=== PATIENT | male | born 1975 | race Caucasian/White ===

== ENCOUNTER 2019-02-06 08:58 | Emergency (ER) | payer OTHER ==
[2019-02-06 09:10] VITALS: TEMP 98.3; BMI 33.7
--- NOTE | 2019-02-06 09:41 | PDOC ---
History of Present Illness - General Chief Complaint: Urinary Problem Stated Complaint: URINATING BLOOD Time Seen by Provider: 02/06/19 09:22 History Source: Patient Exam Limitations: No Limitations - History of Present Illness Initial Comments: 43 yo M history HTN, HL, anxiety presents with hematuria since this morning. He states that he felt like there was an obstruction in his urethra when he attempted to urinate this morning, however, he was able to pass urine without difficulty. He states that it feels a bit better but he still feels as if his urethra is irritated when he urinates. He noted bright red blood in his urine this morning. No prior history of kidney stone. No recent back pain, N/V. Past History - Past Medical History Allergies/Adverse Reactions: Allergies Allergy/AdvReac Type Severity Reaction Status Date / Time No Known Allergies Allergy Verified 02/06/19 09:04 Home Medications: Ambulatory Orders Atorvastatin Calcium 40 mg PO DAILY 08/07/15 Aspirin [ASA -] 81 mg PO DAILY 02/06/19 Losartan/Hydrochlorothiazide [Losartan-Hctz 100-25 mg Tab] 1 each PO DAILY 02/06 Sulfamethoxazole/Trimethoprim [Bactrim Ds -] 1 tab PO BID #6 tablet 02/06/19 COPD: No HTN: Yes Psychiatric Problems: Yes (ANXIETY) - Family Disease History Family Disease History: Heart Disease: Father - Suicide/Smoking/Psychosocial Hx Smoking History: Never smoked Have you smoked in the past 12 months: No Hx Alcohol Use: No Substance Use Type: None Review of Systems - Review of Systems Able to Perform ROS?: Yes Comments:: GENERAL/CONSTITUTIONAL: No fever or chills. No weakness. HEAD, EYES, EARS, NOSE AND THROAT: No change in vision. No ear pain or discharge. No sore throat. CARDIOVASCULAR: No chest pain or shortness of breath. RESPIRATORY: No cough, wheezing, or hemoptysis. GASTROINTESTINAL: No nausea, vomiting, diarrhea or constipation. GENITOURINARY: No dysuria, frequency. +Hematuria MUSCULOSKELETAL: No joint or muscle swelling or pain. No neck or back pain. SKIN: No rash. NEUROLOGIC: No headache, vertigo, loss of consciousness, or change in strength/ sensation. ENDOCRINE: No increased thirst. No abnormal weight change. HEMATOLOGIC/LYMPHATIC: No anemia, easy bleeding, or history of blood clots. ALLERGIC/IMMUNOLOGIC: No hives or skin allergy. *Physical Exam - Vital Signs Last Vital Signs Temp Pulse Resp BP Pulse Ox 98.3 F 74 18 121/73 98 02/06/19 09:02 02/06/19 09:02 02/06/19 09:02 02/06/19 09:02 02/06/19 09:02 - Physical Exam Comments: GENERAL: Awake, alert, and fully oriented, in no acute distress HEAD: No signs of trauma EYES: PERRLA, EOMI, sclera anicteric, conjunctiva clear ENT: Auricles normal inspection, hearing grossly normal, nares patent, oropharynx clear without exudates. Moist mucosa NECK: Normal ROM, supple, no lymphadenopathy, JVD, or masses LUNGS: Breath sounds equal, clear to auscultation bilaterally. No wheezes, and no crackles HEART: Regular rate and rhythm, normal S1 and S2, no murmurs, rubs or gallops ABDOMEN: Soft, +suprapubic tenderness, normoactive bowel sounds. No guarding, no rebound. No masses. No CVAT EXTREMITIES: Normal range of motion, no edema. No clubbing or cyanosis. No cords, erythema, or tenderness NEUROLOGICAL: Cranial nerves II through XII grossly intact. Normal speech, normal gait. Motor and sensation intact SKIN: Warm, dry, normal turgor, no rashes or lesions noted. ED Treatment Course - LABORATORY CBC & Chemistry Diagram: 02/06/19 10:00 02/06/19 10:00 Medical Decision Making - Medical Decision Making 02/06/19 09:40 Pt presents with abrupt onset hematuria, found to have suprapubic tenderness. No CVAT. Suspicion for kidney stone is low (therefore will not order CT immediately). Will obtain UA. If there are no signs of infection, will consider CT to r/o stone. 02/06/19 11:14 Creatinine is normal (checked because urine was tea-colored). UA is grossly positive. Will treat with bactrim. No prior cultures available for comparison. 02/06/19 11:30 Discussed results with patient at bedside. First dose of bactrim given in ED. Stable for DC home, PMD f/u. *DC/Admit/Observation/Transfer Diagnosis at time of Disposition: UTI (urinary tract infection) Qualifiers: Urinary tract infection type: acute cystitis Hematuria presence: with hematuria Qualified Code(s): N30.01 - Acute cystitis with hematuria - Discharge Dispostion Disposition: HOME Condition at time of disposition: Stable Decision to Admit order: No - Prescriptions Prescriptions: Sulfamethoxazole/Trimethoprim [Bactrim Ds -] 1 tab PO BID #6 tablet - Referrals Referrals: Kenny Thompson MD [Primary Care Provider] - - Patient Instructions Printed Discharge Instructions: DI for Urinary Tract Infection (UTI) - Post Discharge Activity
[2019-02-06 10:13] LABS: EPI CELLS 0.5 /HPF (0-5/HPF); HYALINE CASTS 1 /lpf (0-8); PH,URINE 5.5 (5.0-8.0); URINE APPEARANCE TURBID; URINE BILIRUBIN NEGATIVE (NEGATIVE); URINE COLOR ORANGE; URINE GLUCOSE (UA) NEGATIVE (NEGATIVE); URINE KETONE NEGATIVE (NEGATIVE); URINE LEUK ESTERASE 3+ (NEGATIVE); URINE NITRITE NEGATIVE (NEGATIVE); URINE PROTEIN 2+ (NEGATIVE); URINE RBC 1018 /hpf (0-4); URINE UROBILINOGEN 0.2 mg/dL (0.2-1.0); URINE WBC 246 /hpf (0-5)
[2019-02-06 10:20] LABS: BASO % 0.7 % (0-2.0); EOS % 3.6 % (0-4.5); HEMATOCRIT 38.4 % (35.4-49); HEMOGLOBIN 12.8 GM/dL (11.7-16.9); LYMPH % 15.4 % (8-40); MCH 29.3 pg (25.7-33.7); MCHC 33.3 g/dl (32.0-35.9); MEAN PLT VOLUME 9.4 fl (7.5-11.1); MONO % 4.8 % (3.8-10.2); NEUT % 75.5 % (42.8-82.8); PLATELET COUNT 270 K/MM3 (134-434); RBC 4.36 M/mm3 (4.00-5.60); RDW 14.1 % (11.9-15.9); WHITE BLOOD COUNT 10.6 K/mm3 (4.0-10.0)
[2019-02-06 10:48] LABS: ALBUMIN 4.1 g/dl (3.4-5.0); BILIRUBIN,TOTAL 0.4 mg/dL (0.2-1); BLOOD UREA NITROGEN 17.1 mg/dL (7-18); CALCIUM 9.9 mg/dL (8.5-10.1); CREATININE 0.9 mg/dL (0.55-1.3); POTASSIUM 4.6 mmol/L (3.5-5.1); TOT PROT 7.4 g/dl (6.4-8.2)
[2019-02-06] MEDS ORDERED: SULFAMETHOXAZOLE/TRIMETHOPRIM 800MG/160MG D.S. TABLET PO ONE (11:12)
[2019-02-06 11:21] VITALS: BP 123/78; PULSE 62
[2019-02-06] MEDS ORDERED: SULFAMETHOXAZOLE/TRIMETHOPRIM 800MG/160MG D.S. TABLET ONE (11:26)
== END 2019-02-06 11:40 | disposition home or self-care (01) ==
LOC: JER 08:58
DX: N30.01 Acute cystitis with hematuria (principal); I10 Essential (primary) hypertension; E78.5 Hyperlipidemia, unspecified; F41.9 Anxiety disorder, unspecified
CPT/HCPCS: 36415; 80053; 81003; 85025; 87086; 87186; 99282-25

== ENCOUNTER 2021-07-26 16:02 | Observation (INO) | payer OTHER ==
[2021-07-26 17:25] LABS: BASO % 0.6 % (0-2.0); EOS % 3.1 % (0-4.5); HEMATOCRIT 37.3 % (35.4-49); HEMOGLOBIN 12.5 GM/dL (11.7-16.9); LYMPH % 22.4 % (8-40); MCH 28.2 pg (25.7-33.7); MCHC 33.4 g/dl (32.0-35.9); MEAN CELL VOLUME 84.4 fl (80-96); MEAN PLT VOLUME 8.3 fl (7.5-11.1); MONO % 6.6 % (3.8-10.2); NEUT % 67.3 % (42.8-82.8); PLATELET COUNT 367 10^3/uL (134-434); RBC 4.42 M/mm3 (4.00-5.60); RDW 14.3 % (11.9-15.9); WHITE BLOOD COUNT 7.4 K/mm3 (4.0-10.0)
[2021-07-26 17:34] LABS: INR 1.16 (0.83-1.09); PROTHROMBIN TIME (PATIENT) 13.4 SEC (9.7-13.0)
[2021-07-26 17:37] LABS: ACTIVATED PTT 31.7 SECONDS (25.2-36.5)
[2021-07-26 17:41] LABS: URINE APPEARANCE CLEAR; URINE BILIRUBIN NEGATIVE (NEGATIVE); URINE COLOR DK YELLOW; URINE GLUCOSE (UA) NEGATIVE (NEGATIVE); URINE KETONE 1+ (NEGATIVE); URINE LEUK ESTERASE NEGATIVE (NEGATIVE); URINE NITRITE NEGATIVE (NEGATIVE); URINE PROTEIN TRACE (NEGATIVE); URINE UROBILINOGEN 0.2 mg/dL (0.2-1.0)
[2021-07-26 17:49] LABS: ALBUMIN 3.8 g/dl (3.4-5.0); CALCIUM 9.9 mg/dL (8.5-10.1)
[2021-07-26 17:50] LABS: BLOOD UREA NITROGEN 10.5 mg/dL (7-18)
[2021-07-26 17:54] LABS: BILIRUBIN,TOTAL 0.7 mg/dL (0.2-1); TOT PROT 8.2 g/dl (6.4-8.2)
[2021-07-26 21:43] LABS: BASO % 0.7 % (0-2.0); EOS % 3.8 % (0-4.5); HEMATOCRIT 35.6 % (35.4-49); LYMPH % 26.5 % (8-40); MCH 28.3 pg (25.7-33.7); MCHC 33.5 g/dl (32.0-35.9); MEAN CELL VOLUME 84.5 fl (80-96); MEAN PLT VOLUME 8.7 fl (7.5-11.1); MONO % 7.4 % (3.8-10.2); NEUT % 61.6 % (42.8-82.8); PLATELET COUNT 344 10^3/uL (134-434); RBC 4.22 M/mm3 (4.00-5.60); RDW 14.2 % (11.9-15.9); WHITE BLOOD COUNT 7.9 K/mm3 (4.0-10.0)
[2021-07-26] MEDS ORDERED: SODIUM CHLORIDE 1,000 ML IV SCH (22:15)
[2021-07-27] MEDS ORDERED: PANTOPRAZOLE SODIUM 40 MG/100 ML BAG IVPB ONE (01:52)
[2021-07-27] MEDS: PANTOPRAZOLE SODIUM 40 MG VIAL IVPUSH SCH ×2 (02:00→09:41)
[2021-07-27 03:24] VITALS: BMI 31.9
[2021-07-27 07:54] LABS: CALCIUM 8.9 mg/dL (8.5-10.1)
[2021-07-27 07:55] LABS: ALBUMIN 3.4 g/dl (3.4-5.0); BLOOD UREA NITROGEN 12.4 mg/dL (7-18)
[2021-07-27 07:57] LABS: HEMATOCRIT 35.3 % (35.4-49); HEMOGLOBIN 11.9 GM/dL (11.7-16.9); MCH 28.3 pg (25.7-33.7); MCHC 33.8 g/dl (32.0-35.9); MEAN CELL VOLUME 83.7 fl (80-96); MEAN PLT VOLUME 8.3 fl (7.5-11.1); PLATELET COUNT 343 10^3/uL (134-434); RBC 4.22 M/mm3 (4.00-5.60); RDW 13.8 % (11.9-15.9); WHITE BLOOD COUNT 6.7 K/mm3 (4.0-10.0)
[2021-07-27 07:58] LABS: CREATININE 0.9 mg/dL (0.55-1.3)
[2021-07-27 08:00] LABS: BILIRUBIN,TOTAL 0.8 mg/dL (0.2-1); TOT PROT 7.1 g/dl (6.4-8.2)
[2021-07-27] MEDS ORDERED: LOSARTAN 50MG/HCTZ 12.5MG 1 TAB PO SCH (10:00)
[2021-07-27 13:22] VITALS: BP 129/78; PULSE 78; TEMP 98.7
[2021-07-27] MEDS ORDERED: ATORVASTATIN CA 40 MG TABLET (FP) PO SCH (22:00)
== END 2021-07-27 15:08 | disposition left against medical advice (07) ==
LOC: JER 16:02 → JERBED 21:13 → J8W 07-27 02:58
PROVIDERS: ADMIT Internal Medicine; ATTEND Internal Medicine
PROC: 3E033GC Introduction of Other Therapeutic Substance into Peripheral Vein, Percutaneous Approach (ICD-10-PCS; principal; 2021-07-26)
PROC: 3E0337Z Introduction of Electrolytic and Water Balance Substance into Peripheral Vein, Percutaneous Approach (ICD-10-PCS; 2021-07-26)
DX: K92.1 Melena (principal); K76.9 Liver disease, unspecified; N40.0 Benign prostatic hyperplasia without lower urinary tract symptoms; I10 Essential (primary) hypertension; E78.5 Hyperlipidemia, unspecified; L29.9 Pruritus, unspecified; N20.0 Calculus of kidney; K59.00 Constipation, unspecified; R19.7 Diarrhea, unspecified; R82.4 Acetonuria; E66.9 Obesity, unspecified; Z68.32 Body mass index [BMI] 32.0-32.9, adult
CPT/HCPCS: 36415; 74177-TC; 80053; 81003; 82272; 83036; 85025; 85027; 85610; 85730; 86803; 86850; 86900; 86901; 87086; 93005; 93010; 96374; 99285-25; C9803; G0378; Q9967; U0003; U0005

== ENCOUNTER 2021-08-06 05:29 | Day surgery (SDC) | payer OTHER ==
[2021-07-30 15:06] VITALS: BMI 39.6
[2021-08-06 09:36] VITALS: BP 103/69; PULSE 63; TEMP 98.7
[2021-08-08 16:09] LABS: ATYPICAL pANCA <1:20 titer (Neg:<1:20)
== END 2021-08-06 09:42 | disposition home or self-care (01) ==
LOC: JASU-ENDO 05:29
PROVIDERS: ATTEND Internal Medicine Gastroenterology
PROC: 0DBL8ZX Excision of Transverse Colon, Via Natural or Artificial Opening Endoscopic, Diagnostic (ICD-10-PCS; 2021-08-06)
PROC: 0DBP8ZX Excision of Rectum, Via Natural or Artificial Opening Endoscopic, Diagnostic (ICD-10-PCS; 2021-08-06)
PROC: 0DBF8ZX Excision of Right Large Intestine, Via Natural or Artificial Opening Endoscopic, Diagnostic (ICD-10-PCS; 2021-08-06)
PROC: 0DBM8ZX Excision of Descending Colon, Via Natural or Artificial Opening Endoscopic, Diagnostic (ICD-10-PCS; 2021-08-06)
PROC: 0DBH8ZX Excision of Cecum, Via Natural or Artificial Opening Endoscopic, Diagnostic (ICD-10-PCS; principal; 2021-08-06 08:00)
DX: K52.89 Other specified noninfective gastroenteritis and colitis (principal); K62.89 Other specified diseases of anus and rectum
CPT/HCPCS: 36415; 82542; 86140; 86256; 86480; 86671; 86704; 86803; 87340; 87517; 88305-TC

== ENCOUNTER 2021-12-09 08:49 | Day surgery (SDC) | payer OTHER ==
[2021-12-09] MEDS ORDERED: SODIUM CHLORIDE 250 ML IV ONE (09:00)
[2021-12-09] MEDS ORDERED: diphenhydrAMINE HCL 25 MG CAPSULE (FP) PO ONE (09:30)
[2021-12-09] MEDS ORDERED: ACETAMINOPHEN 325 MG TABLET (FP) PO ONE (09:30)
[2021-12-09] MEDS ORDERED: PALONOSETRON HCL 0.25 MG/5 ML VIAL IVPUSH ONE (09:30)
[2021-12-09] MEDS ORDERED: DEXAMETHASONE SODIUM PHOSPHATE 10 MG in SODIUM CHLORIDE 50 ML IVPB ONE (09:30)
[2021-12-09] MEDS ORDERED: FOSAPREPITANT DIMEGLUMINE 150 MG in SODIUM CHLORIDE 145 ML IVPB ONE (09:30)
[2021-12-09] MEDS ORDERED: BLEOMYCIN SULFATE 15 UNIT VIAL SQ ONE (10:00)
[2021-12-09] MEDS ORDERED: DOXOrubicin HCL 50 MG/25 ML VIAL IV ONE (10:15)
[2021-12-09] MEDS ORDERED: BLEOMYCIN SULFATE IVPB ONE (10:30)
[2021-12-09] MEDS ORDERED: SODIUM CHLORIDE IVPB ONE ×2 (10:30→10:45)
[2021-12-09] MEDS ORDERED: VINBLASTINE SULFATE IVPB ONE (10:45)
[2021-12-09 10:51] LABS: BASO % 1.2 % (0-2.0); EOS % 6.5 % (0-4.5); HEMATOCRIT 35.6 % (35.4-49); HEMOGLOBIN 11.5 GM/dL (11.7-16.9); LYMPH % 15.4 % (8-40); MCH 26.8 pg (25.7-33.7); MCHC 32.2 g/dl (32.0-35.9); MEAN CELL VOLUME 83.2 fl (80-96); MEAN PLT VOLUME 7.9 fl (7.5-11.1); MONO % 6.6 % (3.8-10.2); NEUT % 70.3 % (42.8-82.8); PLATELET COUNT 383 10^3/uL (134-434); RBC 4.28 M/mm3 (4.00-5.60); RDW 19.5 % (11.9-15.9); WHITE BLOOD COUNT 8.6 K/mm3 (4.0-10.0)
[2021-12-09] MEDS ORDERED: DEXTROSE 5% IVPB ONE (11:00)
[2021-12-09] MEDS ORDERED: LIDOCAINE 2.5%/PRILOCAINE 2.5% 30 GRAM TUBE TP ONE (11:00)
[2021-12-09] MEDS ORDERED: WATER IVPB ONE (11:00)
[2021-12-09] MEDS ORDERED: DACARBAZINE IVPB ONE (11:00)
[2021-12-09 11:37] LABS: CALCIUM 9.4 mg/dL (8.5-10.1)
[2021-12-09 11:38] LABS: ALBUMIN 3.6 g/dl (3.4-5.0); BLOOD UREA NITROGEN 13.6 mg/dL (7-18); MAGNESIUM 2.5 mg/dL (1.8-2.4)
[2021-12-09 11:40] LABS: BILIRUBIN,DIRECT 0.1 mg/dL (0.0-0.2); URIC ACID 3.1 mg/dL (2.6-7.2)
[2021-12-09 11:41] LABS: CREATININE 0.8 mg/dL (0.55-1.3)
[2021-12-09 11:42] LABS: BILIRUBIN,TOTAL 0.6 mg/dL (0.2-1); TOT PROT 7.4 g/dl (6.4-8.2)
[2021-12-09 12:07] LABS: ANISOCYTOSIS 1+; MACROCYTOSIS 0
[2021-12-09 17:37] VITALS: PULSE 81; TEMP 98.7
[2021-12-09 17:55] VITALS: BP 118/58; RESP 18
[2021-12-09] MEDS ORDERED: PORTA CATH FLUSH 10 ML IVPUSH PRN (17:55)
== END 2021-12-09 17:15 | disposition home or self-care (01) ==
LOC: JONCCHEMO 08:49
PROVIDERS: ATTEND Internal Medicine Hematology & Oncology
DX: Z51.11 Encounter for antineoplastic chemotherapy (principal); C81.90 Hodgkin lymphoma, unspecified, unspecified site
CPT/HCPCS: 36415; 80048; 80076; 83615; 83735; 84550; 85025; 96367; 96375; 96401; 96411; 96413; J1453; J2469; J9040; J9130

== ENCOUNTER 2021-12-10 06:25 | Day surgery (SDC) | payer OTHER ==
[2021-12-10] MEDS ORDERED: D5-NS + 40 MEQ KCL - 20 MEQ/500 ML INFUS.BAG IV ONE (09:00)
[2021-12-10] MEDS ORDERED: PEGFILGRASTIM-CBQV (UDENYCA) 6 MG/0.6 ML SYRINGE SQ ONE (10:00)
[2021-12-10] MEDS ORDERED: MAGNESIUM 1GM/D5W - 1 GM/100 ML IVPB IVPB ONE (10:00)
[2021-12-10 15:55] VITALS: TEMP 97.7
[2021-12-10 16:14] VITALS: BP 117/69; PULSE 79; RESP 18
[2021-12-10] MEDS ORDERED: PORTA CATH FLUSH 10 ML IVPUSH PRN (16:14)
== END 2021-12-10 16:00 | disposition home or self-care (01) ==
LOC: JONCCHEMO 06:25
PROVIDERS: ATTEND Internal Medicine Hematology & Oncology
PROC: 3E043GC Introduction of Other Therapeutic Substance into Central Vein, Percutaneous Approach (ICD-10-PCS; principal; 2021-12-10)
PROC: 3E013GC Introduction of Other Therapeutic Substance into Subcutaneous Tissue, Percutaneous Approach (ICD-10-PCS; 2021-12-10)
DX: C81.90 Hodgkin lymphoma, unspecified, unspecified site (principal); Z76.89 Persons encountering health services in other specified circumstances
CPT/HCPCS: 96365; 96372; Q5111

== ENCOUNTER 2021-12-24 06:25 | Day surgery (SDC) | payer OTHER ==
[2021-12-24] MEDS ORDERED: SODIUM CHLORIDE 250 ML IV ONE (09:30)
[2021-12-24] MEDS ORDERED: diphenhydrAMINE HCL 12.5 MG/5 ML UNIT-DOSE CUPS PO ONE (10:00)
[2021-12-24] MEDS ORDERED: PALONOSETRON HCL 0.25 MG/5 ML VIAL IVPUSH ONE (10:00)
[2021-12-24] MEDS ORDERED: ACETAMINOPHEN 325 MG TABLET (FP) PO ONE (10:00)
[2021-12-24] MEDS ORDERED: DEXAMETHASONE SODIUM PHOSPHATE 10 MG in SODIUM CHLORIDE 50 ML IVPB ONE (10:00)
[2021-12-24] MEDS ORDERED: MONTELUKAST NA 10 MG TABLET PO ONE (10:00)
[2021-12-24] MEDS ORDERED: FOSAPREPITANT DIMEGLUMINE 150 MG in SODIUM CHLORIDE 145 ML IVPB ONE (10:00)
[2021-12-24 10:01] LABS: HEMATOCRIT 36.2 % (35.4-49); HEMOGLOBIN 11.9 GM/dL (11.7-16.9); MCHC 32.8 g/dl (32.0-35.9); MEAN CELL VOLUME 82.4 fl (80-96); MEAN PLT VOLUME 8.7 fl (7.5-11.1); PLATELET COUNT 254 10^3/uL (134-434); RBC 4.39 M/mm3 (4.00-5.60); RDW 20.6 % (11.9-15.9); WHITE BLOOD COUNT 7.2 K/mm3 (4.0-10.0)
[2021-12-24 10:25] LABS: MAGNESIUM 2.2 mg/dL (1.8-2.4)
[2021-12-24 10:26] LABS: ALBUMIN 3.8 g/dl (3.4-5.0); BLOOD UREA NITROGEN 16.8 mg/dL (7-18); CALCIUM 9.7 mg/dL (8.5-10.1)
[2021-12-24 10:27] LABS: URIC ACID 3.6 mg/dL (2.6-7.2)
[2021-12-24 10:29] LABS: BILIRUBIN,DIRECT 0.1 mg/dL (0.0-0.2); CREATININE 0.8 mg/dL (0.55-1.3)
[2021-12-24 10:30] LABS: BILIRUBIN,TOTAL 0.3 mg/dL (0.2-1)
[2021-12-24] MEDS ORDERED: DOXOrubicin HCL 50 MG/25 ML VIAL IV ONE (10:30)
[2021-12-24 10:50] LABS: ANISOCYTOSIS 2+; MACROCYTOSIS 1+
[2021-12-24] MEDS ORDERED: SODIUM CHLORIDE IVPB ONE ×2 (11:00→11:15)
[2021-12-24] MEDS ORDERED: BLEOMYCIN SULFATE IVPB ONE (11:00)
[2021-12-24] MEDS ORDERED: VINBLASTINE SULFATE IVPB ONE (11:15)
[2021-12-24] MEDS ORDERED: DEXTROSE 5% IVPB ONE (11:30)
[2021-12-24] MEDS ORDERED: DACARBAZINE IVPB ONE (11:30)
[2021-12-24] MEDS ORDERED: WATER IVPB ONE (11:30)
[2021-12-24 17:13] VITALS: TEMP 98.7
[2021-12-24 17:20] VITALS: BP 121/71; PULSE 80; RESP 18
[2021-12-24] MEDS ORDERED: PORTA CATH FLUSH 10 ML IVPUSH PRN (17:20)
== END 2021-12-24 15:00 | disposition home or self-care (01) ==
LOC: JONCCHEMO 06:25
PROVIDERS: ATTEND Internal Medicine Hematology & Oncology
DX: Z51.11 Encounter for antineoplastic chemotherapy (principal); C81.90 Hodgkin lymphoma, unspecified, unspecified site
CPT/HCPCS: 36415; 80048; 80076; 83615; 83735; 84550; 85025; 96367; 96375; 96411; 96413; J1453; J2469; J9040; J9130

== ENCOUNTER 2021-12-25 07:56 | Day surgery (SDC) | payer OTHER ==
[2021-12-25] MEDS ORDERED: D5-NS + 20 MEQ KCL - 10 MEQ/500 ML INFUS.BAG IV ONE (10:00)
[2021-12-25] MEDS ORDERED: DEXAMETHASONE SODIUM PHOSPHATE 6 MG in DEXTROSE 5%-WATER - 50 ML IVPB ONE (10:00)
[2021-12-25] MEDS ORDERED: MONTELUKAST NA 10 MG TABLET PO ONE (10:00)
[2021-12-25] MEDS ORDERED: MAGNESIUM 1GM/D5W - 1 GM/100 ML IVPB IVPB ONE (10:00)
[2021-12-25 17:12] VITALS: RESP 18; TEMP 98.3
[2021-12-25 17:18] VITALS: BP 128/74; PULSE 80
[2021-12-25] MEDS ORDERED: PORTA CATH FLUSH 10 ML IVPUSH PRN (17:18)
== END 2021-12-25 11:45 | disposition home or self-care (01) ==
LOC: JONCNONCHE 07:56
PROVIDERS: ATTEND Internal Medicine Hematology & Oncology
PROC: 3E043GC Introduction of Other Therapeutic Substance into Central Vein, Percutaneous Approach (ICD-10-PCS; principal; 2021-12-25)
DX: C81.90 Hodgkin lymphoma, unspecified, unspecified site (principal); Z76.89 Persons encountering health services in other specified circumstances
CPT/HCPCS: 96365; 96375

== ENCOUNTER 2022-01-07 08:11 | Day surgery (SDC) | payer OTHER ==
[2022-01-07] MEDS ORDERED: SODIUM CHLORIDE 250 ML IV ONE (09:30)
[2022-01-07] MEDS ORDERED: ACETAMINOPHEN 325 MG TABLET (FP) PO ONE (10:00)
[2022-01-07] MEDS ORDERED: FOSAPREPITANT DIMEGLUMINE 150 MG in SODIUM CHLORIDE 145 ML IVPB ONE (10:00)
[2022-01-07] MEDS ORDERED: DEXAMETHASONE SODIUM PHOSPHATE 10 MG in SODIUM CHLORIDE 50 ML IVPB ONE (10:00)
[2022-01-07] MEDS ORDERED: PALONOSETRON HCL 0.25 MG/5 ML VIAL IVPUSH ONE (10:00)
[2022-01-07] MEDS ORDERED: diphenhydrAMINE HCL 12.5 MG/5 ML UNIT-DOSE CUPS PO ONE (10:00)
[2022-01-07 10:24] LABS: HEMATOCRIT 34.2 % (35.4-49); HEMOGLOBIN 11.6 GM/dL (11.7-16.9); MCH 28.5 pg (25.7-33.7); MCHC 33.9 g/dl (32.0-35.9); MEAN CELL VOLUME 84.1 fl (80-96); MEAN PLT VOLUME 7.6 fl (7.5-11.1); PLATELET COUNT 368 10^3/uL (134-434); RBC 4.06 M/mm3 (4.00-5.60); RDW 20.5 % (11.9-15.9); WHITE BLOOD COUNT 2.9 K/mm3 (4.0-10.0)
[2022-01-07] MEDS ORDERED: DOXOrubicin HCL 50 MG/25 ML VIAL IV ONE (10:30)
[2022-01-07 10:38] VITALS: BP 138/74; PULSE 80; RESP 18; TEMP 98.8
[2022-01-07 10:45] LABS: CALCIUM 9.5 mg/dL (8.5-10.1); MAGNESIUM 2.2 mg/dL (1.8-2.4)
[2022-01-07] MEDS ORDERED: SODIUM CHLORIDE IVPB ONE ×2 (10:45→11:00)
[2022-01-07] MEDS ORDERED: BLEOMYCIN SULFATE IVPB ONE (10:45)
[2022-01-07 10:46] LABS: ALBUMIN 3.6 g/dl (3.4-5.0); BLOOD UREA NITROGEN 12.4 mg/dL (7-18)
[2022-01-07 10:47] LABS: URIC ACID 3.2 mg/dL (2.6-7.2)
[2022-01-07 10:48] LABS: CREATININE 0.7 mg/dL (0.55-1.3)
[2022-01-07 10:49] LABS: BILIRUBIN,DIRECT 0.1 mg/dL (0.0-0.2); TOT PROT 6.7 g/dl (6.4-8.2)
[2022-01-07 10:51] LABS: BILIRUBIN,TOTAL 0.2 mg/dL (0.2-1)
[2022-01-07] MEDS ORDERED: VINBLASTINE SULFATE IVPB ONE (11:00)
[2022-01-07 11:01] LABS: ANISOCYTOSIS 0; HELMET CELLS 0; HOWELL-JOLLY BODIES 0; MACROCYTOSIS 0; OVALOCYTE 0; ROULEAU 0; SICKELED CELLS 0; TARGET CELLS 0; TEAR DROP CELLS 0; TOXIC GRANULATION 0
[2022-01-07] MEDS ORDERED: DACARBAZINE IVPB ONE (11:15)
[2022-01-07] MEDS ORDERED: WATER IVPB ONE (11:15)
[2022-01-07] MEDS ORDERED: DEXTROSE 5% IVPB ONE (11:15)
[2022-01-07 11:39] LABS: HEMATOCRIT 32.9 % (35.4-49); HEMOGLOBIN 11.1 GM/dL (11.7-16.9); MCH 28.1 pg (25.7-33.7); MCHC 33.7 g/dl (32.0-35.9); MEAN CELL VOLUME 83.5 fl (80-96); MEAN PLT VOLUME 7.3 fl (7.5-11.1); PLATELET COUNT 370 10^3/uL (134-434); RBC 3.93 M/mm3 (4.00-5.60); RDW 20.5 % (11.9-15.9); WHITE BLOOD COUNT 3.3 K/mm3 (4.0-10.0)
[2022-01-07 12:20] LABS: ANISOCYTOSIS 2+; MACROCYTOSIS 0; OVALOCYTE 1+; TEAR DROP CELLS 1+
[2022-01-07] MEDS ORDERED: TBO-FILGRASTIM 480 MCG/0.8 ML DISP.SYRIN SQ ONE (12:49)
[2022-01-07] MEDS ORDERED: PORTA CATH FLUSH 10 ML IVPUSH PRN (15:06)
== END 2022-01-07 15:45 | disposition home or self-care (01) ==
LOC: JONCCHEMO 08:11
PROVIDERS: ATTEND Internal Medicine Hematology & Oncology
PROC: 3E0437Z Introduction of Electrolytic and Water Balance Substance into Central Vein, Percutaneous Approach (ICD-10-PCS; principal; 2022-01-07)
PROC: 3E01305 Introduction of Other Antineoplastic into Subcutaneous Tissue, Percutaneous Approach (ICD-10-PCS; 2022-01-07)
DX: C81.90 Hodgkin lymphoma, unspecified, unspecified site (principal); Z76.89 Persons encountering health services in other specified circumstances
CPT/HCPCS: 36415; 80048; 80076; 83615; 83735; 84550; 85025; 96360; 96372; J1447

== ENCOUNTER 2022-01-08 07:08 | Day surgery (SDC) | payer OTHER ==
[2022-01-08] MEDS ORDERED: TBO-FILGRASTIM 480 MCG/0.8 ML DISP.SYRIN SQ ONE (12:50)
[2022-01-08 14:36] VITALS: BP 136/75; PULSE 85; RESP 16; TEMP 98.5
== END 2022-01-08 12:45 | disposition home or self-care (01) ==
LOC: JONCCHEMO 07:08
PROVIDERS: ATTEND Internal Medicine Hematology & Oncology
PROC: 3E013GC Introduction of Other Therapeutic Substance into Subcutaneous Tissue, Percutaneous Approach (ICD-10-PCS; principal; 2022-01-08)
DX: C81.90 Hodgkin lymphoma, unspecified, unspecified site (principal); Z76.89 Persons encountering health services in other specified circumstances
CPT/HCPCS: 96372; J1447

== ENCOUNTER 2022-01-13 07:22 | Day surgery (SDC) | payer OTHER ==
[2022-01-13] MEDS ORDERED: SODIUM CHLORIDE 250 ML IV ONE (09:00)
[2022-01-13] MEDS ORDERED: DIPHENHYDRAMINE HCL 25 MG/10 ML CUP PO ONE (09:30)
[2022-01-13] MEDS ORDERED: PALONOSETRON HCL 0.25 MG/5 ML VIAL IVPUSH ONE (09:30)
[2022-01-13] MEDS ORDERED: DEXAMETHASONE SODIUM PHOSPHATE 10 MG in SODIUM CHLORIDE 50 ML IVPB ONE (09:30)
[2022-01-13] MEDS ORDERED: ACETAMINOPHEN 325 MG TABLET (FP) PO ONE (09:30)
[2022-01-13] MEDS ORDERED: FOSAPREPITANT DIMEGLUMINE 150 MG in SODIUM CHLORIDE 145 ML IVPB ONE (09:30)
[2022-01-13] MEDS ORDERED: DOXOrubicin HCL 50 MG/25 ML VIAL IV ONE (10:00)
[2022-01-13] MEDS ORDERED: BLEOMYCIN SULFATE IVPB ONE (10:15)
[2022-01-13] MEDS ORDERED: SODIUM CHLORIDE IVPB ONE ×2 (10:15→10:30)
[2022-01-13] MEDS ORDERED: VINBLASTINE SULFATE IVPB ONE (10:30)
[2022-01-13] MEDS ORDERED: DEXTROSE 5% IVPB ONE (10:45)
[2022-01-13] MEDS ORDERED: WATER IVPB ONE (10:45)
[2022-01-13] MEDS ORDERED: DACARBAZINE IVPB ONE (10:45)
[2022-01-13 10:59] LABS: HEMATOCRIT 38.9 % (35.4-49); HEMOGLOBIN 12.4 GM/dL (11.7-16.9); MCH 26.8 pg (25.7-33.7); MCHC 31.9 g/dl (32.0-35.9); MEAN CELL VOLUME 84.1 fl (80-96); MEAN PLT VOLUME 8.4 fl (7.5-11.1); PLATELET COUNT 328 10^3/uL (134-434); RBC 4.63 M/mm3 (4.00-5.60); RDW 20.6 % (11.9-15.9)
[2022-01-13 11:15] LABS: ALBUMIN 3.8 g/dl (3.4-5.0); BLOOD UREA NITROGEN 12.6 mg/dL (7-18); CALCIUM 9.9 mg/dL (8.5-10.1)
[2022-01-13 11:18] LABS: BILIRUBIN,DIRECT 0.1 mg/dL (0.0-0.2); CREATININE 0.9 mg/dL (0.55-1.3); URIC ACID 4.3 mg/dL (2.6-7.2)
[2022-01-13 11:20] LABS: TOT PROT 6.8 g/dl (6.4-8.2)
[2022-01-13 11:22] LABS: BILIRUBIN,TOTAL 0.3 mg/dL (0.2-1)
[2022-01-13 11:23] VITALS: PULSE 84; TEMP 99
[2022-01-13] MEDS ORDERED: PORTA CATH FLUSH 10 ML IVPUSH PRN (11:55)
[2022-01-13 12:11] LABS: ANISOCYTOSIS 2+; MACROCYTOSIS 0; OVALOCYTE 1+
[2022-01-13 16:11] VITALS: BP 131/75; RESP 20
== END 2022-01-13 16:14 | disposition home or self-care (01) ==
LOC: JONCCHEMO 07:22
PROVIDERS: ATTEND Internal Medicine Hematology & Oncology
DX: Z51.11 Encounter for antineoplastic chemotherapy (principal); C81.90 Hodgkin lymphoma, unspecified, unspecified site
CPT/HCPCS: 36415; 80048; 80076; 83615; 83735; 84550; 85025; 96367; 96375; 96411; 96413; J1453; J2469; J9040; J9130

== ENCOUNTER 2022-01-14 06:44 | Day surgery (SDC) | payer OTHER ==
[2022-01-14] MEDS: D5-NS + 20 MEQ KCL - 20 MEQ/1,000 ML INFUS.BAG IV ONE ×2 (09:54→11:08)
[2022-01-14 10:01] VITALS: TEMP 98.8
[2022-01-14] MEDS ORDERED: MAGNESIUM 1GM/D5W - 1 GM/100 ML IVPB IVPB ONE (10:15)
[2022-01-14] MEDS: D5-1/2NS+40 MEQ KCL - 20 MEQ/500 ML INFUS.BAG IV ONE ×2 (10:17→12:48)
[2022-01-14] MEDS: D5-NS + 40 MEQ KCL - 20 MEQ/500 ML INFUS.BAG IV ONE (10:17)
[2022-01-14 14:08] VITALS: BP 137/86; PULSE 94; RESP 18
[2022-01-14] MEDS ORDERED: PORTA CATH FLUSH 10 ML IVPUSH PRN (14:08)
== END 2022-01-14 12:45 | disposition home or self-care (01) ==
LOC: JONCCHEMO 06:44
PROVIDERS: ATTEND Internal Medicine Hematology & Oncology
PROC: 3E043GC Introduction of Other Therapeutic Substance into Central Vein, Percutaneous Approach (ICD-10-PCS; principal; 2022-01-14)
PROC: 3E0437Z Introduction of Electrolytic and Water Balance Substance into Central Vein, Percutaneous Approach (ICD-10-PCS; 2022-01-14)
DX: Z76.89 Persons encountering health services in other specified circumstances (principal); C81.90 Hodgkin lymphoma, unspecified, unspecified site
CPT/HCPCS: 96361; 96365

== ENCOUNTER 2022-01-15 06:24 | Day surgery (SDC) | payer OTHER ==
[2022-01-15] MEDS ORDERED: PEGFILGRASTIM-CBQV (UDENYCA) 6 MG/0.6 ML SYRINGE SQ ONE (10:00)
[2022-01-15 16:00] VITALS: BP 125/79; PULSE 75; RESP 16; TEMP 98.6
== END 2022-01-15 10:30 | disposition home or self-care (01) ==
LOC: JONCCHEMO 06:24
PROVIDERS: ATTEND Internal Medicine Hematology & Oncology
PROC: 3E013GC Introduction of Other Therapeutic Substance into Subcutaneous Tissue, Percutaneous Approach (ICD-10-PCS; principal; 2022-01-15)
DX: Z76.89 Persons encountering health services in other specified circumstances (principal); C81.90 Hodgkin lymphoma, unspecified, unspecified site
CPT/HCPCS: 96372; Q5111

== ENCOUNTER 2022-01-28 06:42 | Day surgery (SDC) | payer OTHER ==
[2022-01-28] MEDS ORDERED: SODIUM CHLORIDE 250 ML IV ONE (09:00)
[2022-01-28] MEDS ORDERED: PALONOSETRON HCL 0.25 MG/5 ML VIAL IVPUSH ONE (09:30)
[2022-01-28] MEDS ORDERED: FOSAPREPITANT DIMEGLUMINE 150 MG in SODIUM CHLORIDE 145 ML IVPB ONE (09:30)
[2022-01-28] MEDS ORDERED: DEXAMETHASONE SODIUM PHOSPHATE 8 MG in SODIUM CHLORIDE 50 ML IVPB ONE (09:30)
[2022-01-28] MEDS ORDERED: DIPHENHYDRAMINE HCL 25 MG/10 ML CUP PO ONE (09:30)
[2022-01-28] MEDS ORDERED: ACETAMINOPHEN 325 MG TABLET (FP) PO ONE (09:30)
[2022-01-28] MEDS ORDERED: DOXOrubicin HCL 50 MG/25 ML VIAL IV ONE (10:00)
[2022-01-28] MEDS ORDERED: BLEOMYCIN SULFATE IVPB ONE (10:15)
[2022-01-28] MEDS ORDERED: SODIUM CHLORIDE IVPB ONE ×2 (10:15→10:30)
[2022-01-28] MEDS ORDERED: VINBLASTINE SULFATE IVPB ONE (10:30)
[2022-01-28] MEDS ORDERED: DACARBAZINE IVPB ONE (10:45)
[2022-01-28] MEDS ORDERED: DEXTROSE 5% IVPB ONE (10:45)
[2022-01-28] MEDS ORDERED: WATER IVPB ONE (10:45)
[2022-01-28 11:46] LABS: HEMATOCRIT 38.2 % (35.4-49); HEMOGLOBIN 12.2 GM/dL (11.7-16.9); MCH 27.2 pg (25.7-33.7); MCHC 31.9 g/dl (32.0-35.9); MEAN CELL VOLUME 85.3 fl (80-96); MEAN PLT VOLUME 8.2 fl (7.5-11.1); PLATELET COUNT 303 10^3/uL (134-434); RBC 4.48 M/mm3 (4.00-5.60); RDW 21.5 % (11.9-15.9); WHITE BLOOD COUNT 11.8 K/mm3 (4.0-10.0)
[2022-01-28 11:49] VITALS: RESP 18; TEMP 98.8
[2022-01-28 12:08] LABS: CHLORIDE 106 mmol/L (98-107); SODIUM 139 mmol/L (136-145)
[2022-01-28 12:11] LABS: CALCIUM 9.8 mg/dL (8.5-10.1)
[2022-01-28 12:12] LABS: ALBUMIN 3.7 g/dl (3.4-5.0); ANION GAP 7 MMOL/L (8-16); CO2 25 mmol/L (21-32); GLUCOSE,RANDOM 88 mg/dL (74-106); MAGNESIUM 2.4 mg/dL (1.8-2.4)
[2022-01-28 12:13] LABS: SGOT/AST 20 U/L (15-37); SGPT/ALT 28 U/L (13-61)
[2022-01-28] MEDS ORDERED: PORTA CATH FLUSH 10 ML IVPUSH PRN (12:13)
[2022-01-28 12:14] LABS: BILIRUBIN,DIRECT < 0.1 mg/dL (0.0-0.2); URIC ACID 4.5 mg/dL (2.6-7.2)
[2022-01-28 12:15] LABS: CREATININE 0.8 mg/dL (0.55-1.3)
[2022-01-28 12:16] LABS: BILIRUBIN,TOTAL 0.4 mg/dL (0.2-1); TOT PROT 6.9 g/dl (6.4-8.2)
[2022-01-28 12:18] LABS: ALK PHOS 102 U/L (45-117)
[2022-01-28 12:21] LABS: ANISOCYTOSIS 0; MACROCYTOSIS 0; OVALOCYTE 1+
[2022-01-28 14:04] LABS: LDH 344 U/L (87-246)
[2022-01-28 16:19] VITALS: BP 137/75; PULSE 88
== END 2022-01-28 16:10 | disposition home or self-care (01) ==
LOC: JONCCHEMO 06:42
PROVIDERS: ATTEND Internal Medicine Hematology & Oncology
DX: Z51.11 Encounter for antineoplastic chemotherapy (principal); C81.90 Hodgkin lymphoma, unspecified, unspecified site
CPT/HCPCS: 36415; 80048; 80076; 83615; 83735; 84550; 85025; 96367; 96375; 96411; 96413; J1453; J2469; J9040; J9130

== ENCOUNTER 2022-01-29 09:22 | Day surgery (SDC) | payer OTHER ==
[2022-01-29] MEDS ORDERED: MAGNESIUM 1GM/D5W - 1 GM/100 ML IVPB IVPB ONE (10:00)
[2022-01-29] MEDS ORDERED: D5-NS + 40 MEQ KCL - 20 MEQ/500 ML INFUS.BAG IV ONE (10:00)
[2022-01-29 16:27] VITALS: TEMP 97.1
[2022-01-29] MEDS ORDERED: PORTA CATH FLUSH 10 ML IVPUSH PRN (16:32)
[2022-01-29 16:33] VITALS: BP 136/76; PULSE 86; RESP 20
== END 2022-01-29 11:40 | disposition home or self-care (01) ==
LOC: JONCCHEMO 09:22
PROVIDERS: ATTEND Internal Medicine Hematology & Oncology
PROC: 3E043GC Introduction of Other Therapeutic Substance into Central Vein, Percutaneous Approach (ICD-10-PCS; principal; 2022-01-29)
DX: C81.90 Hodgkin lymphoma, unspecified, unspecified site (principal); Z76.89 Persons encountering health services in other specified circumstances
CPT/HCPCS: 96365; 96368

== ENCOUNTER 2022-01-30 08:40 | Day surgery (SDC) | payer OTHER ==
[2022-01-30] MEDS ORDERED: PEGFILGRASTIM-CBQV (UDENYCA) 6 MG/0.6 ML SYRINGE SQ ONE (10:00)
[2022-01-30 12:12] VITALS: BP 120/79; PULSE 81; RESP 18; TEMP 98.8
== END 2022-01-30 09:50 | disposition home or self-care (01) ==
LOC: JONCCHEMO 08:40
PROVIDERS: ATTEND Internal Medicine Hematology & Oncology
PROC: 3E013GC Introduction of Other Therapeutic Substance into Subcutaneous Tissue, Percutaneous Approach (ICD-10-PCS; principal; 2022-01-30)
DX: C81.90 Hodgkin lymphoma, unspecified, unspecified site (principal); Z76.89 Persons encountering health services in other specified circumstances
CPT/HCPCS: 96372; Q5111

== ENCOUNTER 2022-02-11 09:39 | Day surgery (SDC) | payer OTHER ==
[~2022-02-11 09:39] MED LIST: SODIUM CHLORIDE 250 ML IV ONE
[2022-02-11] MEDS ORDERED: FOSAPREPITANT DIMEGLUMINE 150 MG in SODIUM CHLORIDE 145 ML IVPB ONE (10:00)
[2022-02-11] MEDS ORDERED: PALONOSETRON HCL 0.25 MG/5 ML VIAL IVPUSH ONE (10:00)
[2022-02-11] MEDS ORDERED: DEXAMETHASONE SODIUM PHOSPHATE 8 MG in SODIUM CHLORIDE 50 ML IVPB ONE (10:00)
[2022-02-11] MEDS ORDERED: diphenhydrAMINE HCL 12.5 MG/5 ML UNIT-DOSE CUPS PO ONE (10:00)
[2022-02-11] MEDS ORDERED: ACETAMINOPHEN 325 MG TABLET (FP) PO ONE (10:00)
[2022-02-11 10:08] LABS: BASO % 0.6 % (0-2.0); EOS % 0.6 % (0-4.5); HEMATOCRIT 38.9 % (35.4-49); HEMOGLOBIN 12.5 GM/dL (11.7-16.9); LYMPH % 12.8 % (8-40); MCH 28.2 pg (25.7-33.7); MCHC 32.2 g/dl (32.0-35.9); MEAN CELL VOLUME 87.5 fl (80-96); MEAN PLT VOLUME 8.5 fl (7.5-11.1); MONO % 6.8 % (3.8-10.2); NEUT % 79.2 % (42.8-82.8); PLATELET COUNT 271 10^3/uL (134-434); RBC 4.45 M/mm3 (4.00-5.60); RDW 22.7 % (11.9-15.9); WHITE BLOOD COUNT 16.2 K/mm3 (4.0-10.0)
[2022-02-11] MEDS ORDERED: DOXOrubicin HCL 50 MG/25 ML VIAL IV ONE (10:30)
[2022-02-11 10:33] LABS: ALBUMIN 3.6 g/dl (3.4-5.0); BLOOD UREA NITROGEN 15.4 mg/dL (7-18); CALCIUM 9.5 mg/dL (8.5-10.1); MAGNESIUM 2.3 mg/dL (1.8-2.4)
[2022-02-11 10:36] LABS: BILIRUBIN,DIRECT 0.1 mg/dL (0.0-0.2); URIC ACID 4.9 mg/dL (2.6-7.2)
[2022-02-11 10:37] LABS: BILIRUBIN,TOTAL 0.3 mg/dL (0.2-1)
[2022-02-11 10:38] LABS: TOT PROT 6.5 g/dl (6.4-8.2)
[2022-02-11] MEDS ORDERED: SODIUM CHLORIDE IVPB ONE ×2 (10:45→11:00)
[2022-02-11] MEDS ORDERED: BLEOMYCIN SULFATE IVPB ONE (10:45)
[2022-02-11] MEDS ORDERED: VINBLASTINE SULFATE IVPB ONE (11:00)
[2022-02-11] MEDS ORDERED: WATER IVPB ONE (11:30)
[2022-02-11] MEDS ORDERED: DEXTROSE 5% IVPB ONE (11:30)
[2022-02-11] MEDS ORDERED: DACARBAZINE IVPB ONE (11:30)
[2022-02-11 11:56] LABS: ANISOCYTOSIS 3+; MACROCYTOSIS 0
[2022-02-11 17:16] VITALS: BP 121/71; PULSE 71; RESP 20; TEMP 98.1
[2022-02-11] MEDS ORDERED: PORTA CATH FLUSH 10 ML IVPUSH PRN (17:16)
[2022-02-14 06:06] LABS: BETA-2-MICROGLOBULIN 1.5 mg/L (0.6-2.4)
== END 2022-02-11 14:15 | disposition home or self-care (01) ==
LOC: JONCCHEMO 09:39
PROVIDERS: ATTEND Internal Medicine Hematology & Oncology
DX: Z51.11 Encounter for antineoplastic chemotherapy (principal); C81.90 Hodgkin lymphoma, unspecified, unspecified site
CPT/HCPCS: 36415; 80048; 80076; 82232; 82784; 83615; 83735; 84550; 85025; 96365; 96367; 96411; 96413; J1453; J2469; J9040; J9130

== ENCOUNTER 2022-02-12 09:24 | Day surgery (SDC) | payer OTHER ==
[2022-02-12] MEDS ORDERED: D5-NS + 20 MEQ KCL - 10 MEQ/500 ML INFUS.BAG IV ONE (09:45)
[2022-02-12] MEDS ORDERED: MAGNESIUM 1GM/D5W - 1 GM/100 ML IVPB IVPB ONE (10:00)
[2022-02-12] MEDS ORDERED: WATER IVPB ONE (10:00)
[2022-02-12] MEDS ORDERED: DEXAMETHASONE IVPB ONE (10:00)
[2022-02-12] MEDS ORDERED: DEXTROSE 5% IVPB ONE (10:00)
[2022-02-12] MEDS ORDERED: FAMOTIDINE 40 MG TABLET PO ONE (10:00)
[2022-02-12] MEDS ORDERED: LORATADINE 10 MG TABLET PO ONE (10:00)
[2022-02-12] MEDS ORDERED: D5-1/2NS+20 MEQ KCL - 10 MEQ/500 ML INFUS.BAG IV ONE (10:00)
[2022-02-12 15:38] VITALS: BP 132/78; PULSE 80; RESP 18; TEMP 98.1
[2022-02-12] MEDS ORDERED: PORTA CATH FLUSH 10 ML IVPUSH PRN (15:38)
== END 2022-02-12 12:30 | disposition home or self-care (01) ==
LOC: JONCCHEMO 09:24
PROVIDERS: ATTEND Internal Medicine Hematology & Oncology
PROC: 3E043GC Introduction of Other Therapeutic Substance into Central Vein, Percutaneous Approach (ICD-10-PCS; principal; 2022-02-12)
DX: C81.90 Hodgkin lymphoma, unspecified, unspecified site (principal); Z76.89 Persons encountering health services in other specified circumstances
CPT/HCPCS: 96365; 96367; J1100

== ENCOUNTER 2022-02-13 09:27 | Day surgery (SDC) | payer OTHER ==
[~2022-02-13 09:27] MED LIST changes: +D5-NS + 20 MEQ KCL - 10 MEQ/500 ML INFUS.BAG IV ONE; +DEXAMETHASONE IVPB ONE; +DEXTROSE 5% IVPB ONE; +FAMOTIDINE 40 MG TABLET PO ONE; +LORATADINE 10 MG TABLET PO ONE; +MAGNESIUM 1GM/D5W - 1 GM/100 ML IVPB IVPB ONE; -SODIUM CHLORIDE 250 ML IV ONE; +WATER IVPB ONE
[2022-02-13 09:58] VITALS: BP 132/82; PULSE 73; RESP 18; TEMP 98.4
[2022-02-13] MEDS ORDERED: DEXAMETHASONE 4 MG TABLET (FP) PO ONE (10:00)
[2022-02-13] MEDS ORDERED: FAMOTIDINE 40 MG TABLET PO ONE (10:00)
[2022-02-13] MEDS ORDERED: PEGFILGRASTIM-CBQV (UDENYCA) 6 MG/0.6 ML SYRINGE SQ ONE (10:00)
[2022-02-13] MEDS ORDERED: LORATADINE 10 MG TABLET PO ONE (10:00)
== END 2022-02-13 09:55 | disposition home or self-care (01) ==
LOC: JONCCHEMO 09:27
PROVIDERS: ATTEND Internal Medicine Hematology & Oncology
PROC: 3E013GC Introduction of Other Therapeutic Substance into Subcutaneous Tissue, Percutaneous Approach (ICD-10-PCS; principal; 2022-02-13)
DX: C81.90 Hodgkin lymphoma, unspecified, unspecified site (principal); Z76.89 Persons encountering health services in other specified circumstances
CPT/HCPCS: 96372; Q5111

== ENCOUNTER 2022-02-24 09:15 | Day surgery (SDC) | payer OTHER ==
[2022-02-24] MEDS ORDERED: SODIUM CHLORIDE 250 ML IV ONE (09:30)
[2022-02-24 09:32] LABS: HEMOGLOBIN 12.1 GM/dL (11.7-16.9); MCHC 32.8 g/dl (32.0-35.9); MEAN CELL VOLUME 88.6 fl (80-96); MEAN PLT VOLUME 8.2 fl (7.5-11.1); PLATELET COUNT 244 10^3/uL (134-434); RBC 4.17 M/mm3 (4.00-5.60); RDW 22.3 % (11.9-15.9); WHITE BLOOD COUNT 17.4 K/mm3 (4.0-10.0)
[2022-02-24 09:50] LABS: CALCIUM 9.1 mg/dL (8.5-10.1)
[2022-02-24 09:51] LABS: ALBUMIN 3.6 g/dl (3.4-5.0); BLOOD UREA NITROGEN 17.9 mg/dL (7-18); MAGNESIUM 2.3 mg/dL (1.8-2.4)
[2022-02-24 09:54] LABS: BILIRUBIN,DIRECT 0.1 mg/dL (0.0-0.2); CREATININE 0.8 mg/dL (0.55-1.3); URIC ACID 3.8 mg/dL (2.6-7.2)
[2022-02-24 09:56] LABS: BILIRUBIN,TOTAL 0.3 mg/dL (0.2-1); TOT PROT 6.8 g/dl (6.4-8.2)
[2022-02-24] MEDS ORDERED: DEXAMETHASONE SODIUM PHOSPHATE 8 MG in SODIUM CHLORIDE 50 ML IVPB ONE (10:00)
[2022-02-24] MEDS ORDERED: diphenhydrAMINE HCL 12.5 MG/5 ML UNIT-DOSE CUPS PO ONE (10:00)
[2022-02-24] MEDS ORDERED: PALONOSETRON HCL 0.25 MG/5 ML VIAL IVPUSH ONE (10:00)
[2022-02-24] MEDS ORDERED: ACETAMINOPHEN 325 MG TABLET (FP) PO ONE (10:00)
[2022-02-24] MEDS ORDERED: FOSAPREPITANT DIMEGLUMINE 150 MG in SODIUM CHLORIDE 145 ML IVPB ONE (10:00)
[2022-02-24] MEDS ORDERED: DOXOrubicin HCL 50 MG/25 ML VIAL IV ONE (10:30)
[2022-02-24 10:46] LABS: ANISOCYTOSIS 0; MACROCYTOSIS 0; TEAR DROP CELLS 1+
[2022-02-24] MEDS ORDERED: SODIUM CHLORIDE IVPB ONE ×2 (11:00→11:15)
[2022-02-24] MEDS ORDERED: BLEOMYCIN SULFATE IVPB ONE (11:00)
[2022-02-24] MEDS ORDERED: VINBLASTINE SULFATE IVPB ONE (11:15)
[2022-02-24] MEDS ORDERED: DEXTROSE 5% IVPB ONE (11:30)
[2022-02-24] MEDS ORDERED: DACARBAZINE IVPB ONE (11:30)
[2022-02-24] MEDS ORDERED: WATER IVPB ONE (11:30)
[2022-02-24] MEDS ORDERED: PORTA CATH FLUSH 10 ML IVPUSH PRN (17:04)
[2022-02-24 17:05] VITALS: BP 134/82; PULSE 95; RESP 18; TEMP 98.5
== END 2022-02-24 14:35 | disposition home or self-care (01) ==
LOC: JONCCHEMO 09:15
PROVIDERS: ATTEND Internal Medicine Hematology & Oncology
DX: Z51.11 Encounter for antineoplastic chemotherapy (principal); C81.90 Hodgkin lymphoma, unspecified, unspecified site
CPT/HCPCS: 36415; 80048; 80076; 83615; 83735; 84550; 85025; 96367; 96375; 96411; 96413; J1453; J2469; J9040; J9130

== ENCOUNTER 2022-02-25 09:59 | Day surgery (SDC) | payer OTHER ==
[~2022-02-25 09:59] MED LIST changes: -D5-NS + 20 MEQ KCL - 10 MEQ/500 ML INFUS.BAG IV ONE; +D5-NS + 40 MEQ KCL - 20 MEQ/500 ML INFUS.BAG IV ONE; -DEXAMETHASONE IVPB ONE; +DEXAMETHASONE SODIUM PHOSPHATE 4 MG in SODIUM CHLORIDE 50 ML IVPB ONE; -DEXTROSE 5% IVPB ONE; -FAMOTIDINE 40 MG TABLET PO ONE; -MAGNESIUM 1GM/D5W - 1 GM/100 ML IVPB IVPB ONE; -WATER IVPB ONE
[2022-02-25] MEDS ORDERED: FAMOTIDINE 40 MG TABLET PO ONE (10:00)
[2022-02-25] MEDS ORDERED: MAGNESIUM 1GM/D5W - 1 GM/100 ML IVPB IVPB ONE (10:00)
[2022-02-25 14:31] VITALS: BP 124/79; PULSE 92; RESP 20; TEMP 99
[2022-02-25] MEDS ORDERED: PORTA CATH FLUSH 10 ML IVPUSH PRN (14:31)
== END 2022-02-25 12:35 | disposition home or self-care (01) ==
LOC: JONCCHEMO 09:59
PROVIDERS: ATTEND Internal Medicine Hematology & Oncology
PROC: 3E043GC Introduction of Other Therapeutic Substance into Central Vein, Percutaneous Approach (ICD-10-PCS; principal; 2022-02-25)
DX: C81.90 Hodgkin lymphoma, unspecified, unspecified site (principal); Z76.89 Persons encountering health services in other specified circumstances
CPT/HCPCS: 96361; 96365

== ENCOUNTER 2022-02-26 09:49 | Day surgery (SDC) | payer OTHER ==
[~2022-02-26 09:49] MED LIST changes: -D5-NS + 40 MEQ KCL - 20 MEQ/500 ML INFUS.BAG IV ONE; +DEXAMETHASONE 4 MG TABLET (FP) PO ONE; -DEXAMETHASONE SODIUM PHOSPHATE 4 MG in SODIUM CHLORIDE 50 ML IVPB ONE; +FAMOTIDINE 40 MG TABLET PO ONE; +PEGFILGRASTIM-CBQV (UDENYCA) 6 MG/0.6 ML SYRINGE SQ ONE
[2022-02-26 15:46] VITALS: BP 130/68; PULSE 90; RESP 20; TEMP 98.5
== END 2022-02-26 10:30 | disposition home or self-care (01) ==
LOC: JONCCHEMO 09:49
PROVIDERS: ATTEND Internal Medicine Hematology & Oncology
PROC: 3E013GC Introduction of Other Therapeutic Substance into Subcutaneous Tissue, Percutaneous Approach (ICD-10-PCS; principal; 2022-02-26)
DX: C81.90 Hodgkin lymphoma, unspecified, unspecified site (principal); Z76.89 Persons encountering health services in other specified circumstances
CPT/HCPCS: 96372; Q5111

== ENCOUNTER 2022-03-05 14:53 | Emergency (ER) | payer OTHER ==
[2022-03-05 15:08] VITALS: BP 129/77; PULSE 113; RESP 18; BMI 34.9
[2022-03-05] MEDS ORDERED: SODIUM CHLORIDE 2,000 ML IV STA (17:21)
[2022-03-05] MEDS ORDERED: ACETAMINOPHEN 1000 MG/100 ML BAG IVPB ONE (17:24)
[2022-03-05] MEDS ORDERED: ACETAMINOPHEN INJECTION 100 ML IVPB ONE (18:12)
[2022-03-05 19:07] LABS: PH,URINE 7.5 (5.0-8.0); URINE APPEARANCE CLEAR; URINE BILIRUBIN NEGATIVE (NEGATIVE); URINE COLOR YELLOW; URINE GLUCOSE (UA) NEGATIVE (NEGATIVE); URINE KETONE NEGATIVE (NEGATIVE); URINE LEUK ESTERASE NEGATIVE (NEGATIVE); URINE NITRITE NEGATIVE (NEGATIVE); URINE PROTEIN NEGATIVE (NEGATIVE); URINE UROBILINOGEN 0.2 mg/dL (0.2-1.0)
[2022-03-05 19:08] VITALS: TEMP 100.7
[2022-03-05 19:28] LABS: VENOUS BASE EXCESS -0.7 mmol/L (-2-2); VENOUS O2 SATURATION 83.2 % (70-80); VENOUS PCO2 38.8 mmHg (38-52); VENOUS PH 7.405 (7.310-7.410)
[2022-03-05 19:35] LABS: BASO % 0.3 % (0-2.0); EOS % 0.2 % (0-4.5); HEMATOCRIT 37.8 % (35.4-49); HEMOGLOBIN 12.2 GM/dL (11.7-16.9); LYMPH % 2.9 % (8-40); MCHC 32.3 g/dl (32.0-35.9); MEAN CELL VOLUME 89.7 fl (80-96); MEAN PLT VOLUME 8.3 fl (7.5-11.1); MONO % 7.9 % (3.8-10.2); NEUT % 88.7 % (42.8-82.8); PLATELET COUNT 324 10^3/uL (134-434); RBC 4.22 M/mm3 (4.00-5.60); RDW 22.6 % (11.9-15.9); WHITE BLOOD COUNT 24.8 K/mm3 (4.0-10.0)
[2022-03-05 19:51] LABS: CALCIUM 9.7 mg/dL (8.5-10.1)
[2022-03-05 19:52] LABS: ALBUMIN 3.9 g/dl (3.4-5.0); BLOOD UREA NITROGEN 5.5 mg/dL (7-18)
[2022-03-05 19:54] LABS: PHOSPHOROUS 4.1 mg/dL (2.5-4.9)
[2022-03-05 19:55] LABS: CREATININE 0.9 mg/dL (0.55-1.3)
[2022-03-05 19:56] LABS: BILIRUBIN,TOTAL 0.5 mg/dL (0.2-1); TOT PROT 6.9 g/dl (6.4-8.2)
[2022-03-05] MEDS ORDERED: METOCLOPRAMIDE HCL INJECTION 10 MG/2 ML VIAL IVPUSH ONE (20:35)
[2022-03-05] MEDS ORDERED: METOCLOPRAMIDE HCL INJECTION 10 MG/2 ML VIAL ONE (20:37)
[2022-03-05] MEDS ORDERED: CEFTRIAXONE 2,000 MG in DEXTROSE 5%-WATER - 50 ML IVPB ONE (20:39)
[2022-03-05] MEDS ORDERED: VANCOMYCIN/WATER 2 GM/400 ML PREMIX BAG IVPB ONE (20:39)
[2022-03-05 20:40] LABS: ANISOCYTOSIS 0; MACROCYTOSIS 0
[2022-03-05] MEDS ORDERED: DEXAMETHASONE SOD PHOSPHATE 4 MG/1 ML VIAL IVPUSH ONE (20:41)
[2022-03-05 20:47] LABS: INR 1.17 (0.83-1.09); PROTHROMBIN TIME (PATIENT) 13.5 SEC (9.7-13.0)
[2022-03-05 20:49] LABS: ACTIVATED PTT 26.6 SECONDS (25.2-36.5)
== END 2022-03-05 21:49 | disposition left against medical advice (07) ==
LOC: JER 14:53
PROC: 3E033GC Introduction of Other Therapeutic Substance into Peripheral Vein, Percutaneous Approach (ICD-10-PCS; principal; 2022-03-05)
DX: R50.9 Fever, unspecified (principal)
CPT/HCPCS: 0241U-QW; 36415; 70450-TC; 71045-TC-FY; 80053; 81003; 82553; 82803; 83605; 84100; 85025; 85610; 85730; 86850; 86900; 86901; 87040; 87086; 93005; 93010; 99285-25

== ENCOUNTER 2022-03-11 09:35 | Day surgery (SDC) | payer OTHER ==
[~2022-03-11 09:35] MED LIST changes: +ACETAMINOPHEN 325 MG TABLET (FP) PO ONE; -DEXAMETHASONE 4 MG TABLET (FP) PO ONE; +DEXAMETHASONE SODIUM PHOSPHATE 8 MG in SODIUM CHLORIDE 50 ML IVPB ONE; -FAMOTIDINE 40 MG TABLET PO ONE; +FOSAPREPITANT DIMEGLUMINE 150 MG in SODIUM CHLORIDE 145 ML IVPB ONE; -LORATADINE 10 MG TABLET PO ONE; +PALONOSETRON HCL 0.25 MG/5 ML VIAL IVPUSH ONE; -PEGFILGRASTIM-CBQV (UDENYCA) 6 MG/0.6 ML SYRINGE SQ ONE; +SODIUM CHLORIDE 250 ML IV ONE; +diphenhydrAMINE HCL 12.5 MG/5 ML UNIT-DOSE CUPS PO ONE
[2022-03-11] MEDS ORDERED: DOXOrubicin HCL 50 MG/25 ML VIAL IV ONE (10:00)
[2022-03-11 10:11] LABS: HEMATOCRIT 36.5 % (35.4-49); MCH 28.9 pg (25.7-33.7); MCHC 32.7 g/dl (32.0-35.9); MEAN CELL VOLUME 88.3 fl (80-96); MEAN PLT VOLUME 8.6 fl (7.5-11.1); PLATELET COUNT 340 10^3/uL (134-434); RBC 4.14 M/mm3 (4.00-5.60); RDW 22.9 % (11.9-15.9); WHITE BLOOD COUNT 21.7 K/mm3 (4.0-10.0)
[2022-03-11] MEDS ORDERED: SODIUM CHLORIDE IVPB ONE ×2 (10:15→10:30)
[2022-03-11] MEDS ORDERED: BLEOMYCIN SULFATE IVPB ONE (10:15)
[2022-03-11] MEDS ORDERED: VINBLASTINE SULFATE IVPB ONE (10:30)
[2022-03-11 10:33] LABS: MAGNESIUM 2.4 mg/dL (1.8-2.4)
[2022-03-11 10:35] LABS: ALBUMIN 3.8 g/dl (3.4-5.0); BLOOD UREA NITROGEN 11.6 mg/dL (7-18); CALCIUM 9.8 mg/dL (8.5-10.1)
[2022-03-11 10:37] LABS: CREATININE 0.8 mg/dL (0.55-1.3); URIC ACID 3.4 mg/dL (2.6-7.2)
[2022-03-11 10:38] LABS: BILIRUBIN,DIRECT 0.1 mg/dL (0.0-0.2)
[2022-03-11 10:39] LABS: TOT PROT 6.8 g/dl (6.4-8.2)
[2022-03-11 10:40] LABS: BILIRUBIN,TOTAL 0.3 mg/dL (0.2-1)
[2022-03-11] MEDS ORDERED: DACARBAZINE IVPB ONE (10:50)
[2022-03-11] MEDS ORDERED: WATER IVPB ONE (10:50)
[2022-03-11] MEDS ORDERED: DEXTROSE 5% IVPB ONE (10:50)
[2022-03-11 11:10] LABS: ANISOCYTOSIS 1+; MACROCYTOSIS 0
[2022-03-11 16:09] VITALS: RESP 18; TEMP 98.4
[2022-03-11 16:40] VITALS: BP 107/58; PULSE 69
[2022-03-11] MEDS ORDERED: PORTA CATH FLUSH 10 ML IVPUSH PRN (16:40)
== END 2022-03-11 15:25 | disposition home or self-care (01) ==
LOC: JONCCHEMO 09:35
PROVIDERS: ATTEND Internal Medicine Hematology & Oncology
DX: Z51.11 Encounter for antineoplastic chemotherapy (principal); C81.90 Hodgkin lymphoma, unspecified, unspecified site
CPT/HCPCS: 36415; 80048; 80076; 83615; 83735; 84550; 85025; 87040; 96367; 96375; 96411; 96413; J1453; J2469; J9040; J9130

== ENCOUNTER 2022-03-12 09:24 | Day surgery (SDC) | payer OTHER ==
[2022-03-12] MEDS ORDERED: FAMOTIDINE 40 MG TABLET PO ONE (10:15)
[2022-03-12] MEDS ORDERED: DEXAMETHASONE SODIUM PHOSPHATE 4 MG in SODIUM CHLORIDE 50 ML IVPB ONE (10:15)
[2022-03-12] MEDS ORDERED: LORATADINE 10 MG TABLET PO ONE (10:15)
[2022-03-12] MEDS ORDERED: D5-NS + 40 MEQ KCL - 20 MEQ/500 ML INFUS.BAG IV ONE (10:15)
[2022-03-12] MEDS ORDERED: MAGNESIUM 1GM/D5W - 1 GM/100 ML IVPB IVPB ONE (10:30)
[2022-03-12 16:19] VITALS: RESP 18; TEMP 98.2
[2022-03-12 17:05] VITALS: BP 113/62; PULSE 70
[2022-03-12] MEDS ORDERED: PORTA CATH FLUSH 10 ML IVPUSH PRN (17:05)
== END 2022-03-12 13:30 | disposition home or self-care (01) ==
LOC: JONCCHEMO 09:24
PROVIDERS: ATTEND Internal Medicine Hematology & Oncology
PROC: 3E043GC Introduction of Other Therapeutic Substance into Central Vein, Percutaneous Approach (ICD-10-PCS; principal; 2022-03-12)
DX: C81.90 Hodgkin lymphoma, unspecified, unspecified site (principal)
CPT/HCPCS: 96365; 96366; 96367; 96375

== ENCOUNTER 2022-03-13 09:27 | Day surgery (SDC) | payer OTHER ==
[~2022-03-13 09:27] MED LIST changes: -ACETAMINOPHEN 325 MG TABLET (FP) PO ONE; +DEXAMETHASONE 4 MG TABLET (FP) PO ONE; -DEXAMETHASONE SODIUM PHOSPHATE 8 MG in SODIUM CHLORIDE 50 ML IVPB ONE; +FAMOTIDINE 20 MG TABLET PO ONE; -FOSAPREPITANT DIMEGLUMINE 150 MG in SODIUM CHLORIDE 145 ML IVPB ONE; +LORATADINE 10 MG TABLET PO ONE; -PALONOSETRON HCL 0.25 MG/5 ML VIAL IVPUSH ONE; +PEGFILGRASTIM-CBQV (UDENYCA) 6 MG/0.6 ML SYRINGE SQ ONE; -SODIUM CHLORIDE 250 ML IV ONE; -diphenhydrAMINE HCL 12.5 MG/5 ML UNIT-DOSE CUPS PO ONE
[2022-03-13 09:36] VITALS: BP 116/72; PULSE 75; RESP 16; TEMP 98.5
== END 2022-03-13 09:43 | disposition home or self-care (01) ==
LOC: JONCCHEMO 09:27
PROVIDERS: ATTEND Internal Medicine Hematology & Oncology
PROC: 3E013GC Introduction of Other Therapeutic Substance into Subcutaneous Tissue, Percutaneous Approach (ICD-10-PCS; principal; 2022-03-13)
DX: C81.90 Hodgkin lymphoma, unspecified, unspecified site (principal); Z76.89 Persons encountering health services in other specified circumstances
CPT/HCPCS: 96372; Q5111

== ENCOUNTER 2022-03-25 08:54 | Day surgery (SDC) | payer OTHER ==
[~2022-03-25 08:54] MED LIST changes: -DEXAMETHASONE 4 MG TABLET (FP) PO ONE; -FAMOTIDINE 20 MG TABLET PO ONE; -LORATADINE 10 MG TABLET PO ONE; -PEGFILGRASTIM-CBQV (UDENYCA) 6 MG/0.6 ML SYRINGE SQ ONE; +SODIUM CHLORIDE 250 ML IV ONE
[2022-03-25] MEDS ORDERED: SODIUM CHLORIDE 250 ML IV ONE (09:00)
[2022-03-25] MEDS ORDERED: PALONOSETRON HCL 0.25 MG/5 ML VIAL IVPUSH ONE (09:30)
[2022-03-25] MEDS ORDERED: DEXAMETHASONE SODIUM PHOSPHATE 8 MG in SODIUM CHLORIDE 50 ML IVPB ONE (09:30)
[2022-03-25] MEDS ORDERED: FOSAPREPITANT DIMEGLUMINE 150 MG in SODIUM CHLORIDE 145 ML IVPB ONE (09:30)
[2022-03-25] MEDS ORDERED: ACETAMINOPHEN 325 MG TABLET (FP) PO ONE (09:30)
[2022-03-25] MEDS ORDERED: diphenhydrAMINE HCL 12.5 MG/5 ML UNIT-DOSE CUPS PO ONE (09:30)
[2022-03-25 09:49] LABS: HEMOGLOBIN 12.2 GM/dL (11.7-16.9); MCH 29.8 pg (25.7-33.7); MEAN CELL VOLUME 90.2 fl (80-96); MEAN PLT VOLUME 8.6 fl (7.5-11.1); PLATELET COUNT 279 10^3/uL (134-434); RBC 4.11 M/mm3 (4.00-5.60); RDW 23.8 % (11.9-15.9); WHITE BLOOD COUNT 26.3 K/mm3 (4.0-10.0)
[2022-03-25] MEDS ORDERED: DOXOrubicin HCL 50 MG/25 ML VIAL IV ONE (10:00)
[2022-03-25 10:10] LABS: CALCIUM 9.6 mg/dL (8.5-10.1)
[2022-03-25 10:11] LABS: ALBUMIN 3.7 g/dl (3.4-5.0); MAGNESIUM 2.5 mg/dL (1.8-2.4)
[2022-03-25 10:13] LABS: BILIRUBIN,DIRECT 0.1 mg/dL (0.0-0.2); URIC ACID 3.3 mg/dL (2.6-7.2)
[2022-03-25 10:14] LABS: CREATININE 0.8 mg/dL (0.55-1.3)
[2022-03-25 10:15] LABS: BILIRUBIN,TOTAL 0.2 mg/dL (0.2-1); TOT PROT 6.5 g/dl (6.4-8.2)
[2022-03-25] MEDS ORDERED: BLEOMYCIN SULFATE IVPB ONE (10:15)
[2022-03-25] MEDS ORDERED: SODIUM CHLORIDE IVPB ONE ×2 (10:15→10:30)
[2022-03-25] MEDS ORDERED: VINBLASTINE SULFATE IVPB ONE (10:30)
[2022-03-25] MEDS ORDERED: WATER IVPB ONE (10:45)
[2022-03-25] MEDS ORDERED: DACARBAZINE IVPB ONE (10:45)
[2022-03-25] MEDS ORDERED: DEXTROSE 5% IVPB ONE (10:45)
[2022-03-25 10:59] LABS: ANISOCYTOSIS 2+; MACROCYTOSIS 0
[2022-03-25 14:53] VITALS: BP 131/83; PULSE 70; RESP 18; TEMP 98.8
[2022-03-25] MEDS ORDERED: PORTA CATH FLUSH 10 ML IVPUSH PRN (14:53)
== END 2022-03-25 15:20 | disposition home or self-care (01) ==
LOC: JONCCHEMO 08:54
PROVIDERS: ATTEND Internal Medicine Hematology & Oncology
DX: Z51.11 Encounter for antineoplastic chemotherapy (principal); C81.90 Hodgkin lymphoma, unspecified, unspecified site
CPT/HCPCS: 36415; 80048; 80076; 82232; 82784; 83615; 83735; 84550; 85025; 96367; 96375; 96411; 96413; J1453; J2469; J9040; J9130

== ENCOUNTER 2022-03-26 09:24 | Day surgery (SDC) | payer OTHER ==
[~2022-03-26 09:24] MED LIST changes: +D5-NS + 40 MEQ KCL - 20 MEQ/500 ML INFUS.BAG IV ONE; +DEXAMETHASONE SODIUM PHOSPHATE 4 MG in SODIUM CHLORIDE 50 ML IVPB ONE; +FAMOTIDINE 40 MG TABLET PO ONE; +LORATADINE 10 MG TABLET PO ONE; +MAGNESIUM 1GM/D5W - 1 GM/100 ML IVPB IVPB ONE; -SODIUM CHLORIDE 250 ML IV ONE
[2022-03-26 16:03] VITALS: RESP 18; TEMP 98.2
[2022-03-26 16:19] VITALS: BP 136/68; PULSE 65
[2022-03-26] MEDS ORDERED: PORTA CATH FLUSH 10 ML IVPUSH PRN (16:19)
== END 2022-03-26 12:25 | disposition home or self-care (01) ==
LOC: JONCCHEMO 09:24
PROVIDERS: ATTEND Internal Medicine Hematology & Oncology
PROC: 3E043GC Introduction of Other Therapeutic Substance into Central Vein, Percutaneous Approach (ICD-10-PCS; principal; 2022-03-26)
DX: C81.90 Hodgkin lymphoma, unspecified, unspecified site (principal); Z76.89 Persons encountering health services in other specified circumstances
CPT/HCPCS: 96365; 96375

== ENCOUNTER 2022-03-27 09:32 | Day surgery (SDC) | payer OTHER ==
[2022-03-27] MEDS ORDERED: PEGFILGRASTIM-CBQV (UDENYCA) 6 MG/0.6 ML SYRINGE SQ ONE (10:00)
[2022-03-27] MEDS ORDERED: DEXAMETHASONE 4 MG TABLET (FP) PO ONE (10:00)
[2022-03-27] MEDS ORDERED: FAMOTIDINE 40 MG TABLET PO ONE (10:00)
[2022-03-27] MEDS ORDERED: LORATADINE 10 MG TABLET PO ONE (10:00)
[2022-03-27 14:48] VITALS: BP 124/82; PULSE 74; RESP 18; TEMP 98.5
== END 2022-03-27 10:00 | disposition home or self-care (01) ==
LOC: JONCCHEMO 09:32
PROVIDERS: ATTEND Internal Medicine Hematology & Oncology
PROC: 3E013GC Introduction of Other Therapeutic Substance into Subcutaneous Tissue, Percutaneous Approach (ICD-10-PCS; principal; 2022-03-27)
DX: C81.90 Hodgkin lymphoma, unspecified, unspecified site (principal); Z76.89 Persons encountering health services in other specified circumstances
CPT/HCPCS: 96372; Q5111

== ENCOUNTER 2022-04-07 08:56 | Day surgery (SDC) | payer OTHER ==
[2022-04-07 09:40] LABS: HEMATOCRIT 35.6 % (35.4-49); HEMOGLOBIN 12.1 GM/dL (11.7-16.9); MCH 30.9 pg (25.7-33.7); MCHC 33.9 g/dl (32.0-35.9); MEAN CELL VOLUME 91.3 fl (80-96); MEAN PLT VOLUME 8.3 fl (7.5-11.1); PLATELET COUNT 226 10^3/uL (134-434); RDW 21.5 % (11.9-15.9); WHITE BLOOD COUNT 10.8 K/mm3 (4.0-10.0)
[2022-04-07 09:54] LABS: ALBUMIN 3.6 g/dl (3.4-5.0); BLOOD UREA NITROGEN 9.3 mg/dL (7-18); CALCIUM 9.2 mg/dL (8.5-10.1); MAGNESIUM 2.2 mg/dL (1.8-2.4)
[2022-04-07 09:57] LABS: BILIRUBIN,DIRECT 0.1 mg/dL (0.0-0.2); CREATININE 0.8 mg/dL (0.55-1.3); URIC ACID 3.8 mg/dL (2.6-7.2)
[2022-04-07 09:59] LABS: BILIRUBIN,TOTAL 0.2 mg/dL (0.2-1); TOT PROT 6.3 g/dl (6.4-8.2)
[2022-04-07] MEDS ORDERED: DEXAMETHASONE SODIUM PHOSPHATE 8 MG in SODIUM CHLORIDE 50 ML IVPB ONE (10:00)
[2022-04-07] MEDS ORDERED: FOSAPREPITANT DIMEGLUMINE 150 MG in SODIUM CHLORIDE 145 ML IVPB ONE (10:00)
[2022-04-07] MEDS ORDERED: ACETAMINOPHEN 325 MG TABLET (FP) PO ONE (10:00)
[2022-04-07] MEDS ORDERED: diphenhydrAMINE HCL 12.5 MG/5 ML UNIT-DOSE CUPS PO ONE (10:00)
[2022-04-07] MEDS ORDERED: SODIUM CHLORIDE 250 ML IV ONE (10:00)
[2022-04-07] MEDS ORDERED: PALONOSETRON HCL 0.25 MG/5 ML VIAL IVPUSH ONE (10:00)
[2022-04-07 10:30] LABS: ANISOCYTOSIS 1+; MACROCYTOSIS 1+
[2022-04-07] MEDS ORDERED: DOXOrubicin HCL 50 MG/25 ML VIAL IV ONE (10:30)
[2022-04-07] MEDS ORDERED: SODIUM CHLORIDE IVPB ONE ×2 (10:45→11:00)
[2022-04-07] MEDS ORDERED: BLEOMYCIN SULFATE IVPB ONE (10:45)
[2022-04-07] MEDS ORDERED: PORTA CATH FLUSH 10 ML IVPUSH PRN (10:47)
[2022-04-07] MEDS ORDERED: VINBLASTINE SULFATE IVPB ONE (11:00)
[2022-04-07] MEDS ORDERED: DEXTROSE 5% IVPB ONE (11:30)
[2022-04-07] MEDS ORDERED: DACARBAZINE IVPB ONE (11:30)
[2022-04-07] MEDS ORDERED: WATER IVPB ONE (11:30)
[2022-04-07 14:57] VITALS: RESP 20; TEMP 98.8
[2022-04-07 15:11] VITALS: BP 133/71; PULSE 89
== END 2022-04-07 14:05 | disposition home or self-care (01) ==
LOC: JONCCHEMO 08:56
PROVIDERS: ATTEND Internal Medicine Hematology & Oncology
DX: Z51.11 Encounter for antineoplastic chemotherapy (principal); C81.90 Hodgkin lymphoma, unspecified, unspecified site
CPT/HCPCS: 36415; 80048; 80076; 83615; 83735; 84550; 85025; 96375; 96411; 96413; J1453; J2469; J9040; J9130

== ENCOUNTER 2022-04-08 09:24 | Day surgery (SDC) | payer OTHER ==
[2022-04-08] MEDS ORDERED: D5-NS + 20 MEQ KCL - 10 MEQ/500 ML INFUS.BAG IV ONE (09:45)
[2022-04-08] MEDS ORDERED: FAMOTIDINE 20 MG TABLET PO ONE (09:45)
[2022-04-08] MEDS ORDERED: LORATADINE 10 MG TABLET PO ONE (09:45)
[2022-04-08] MEDS ORDERED: WATER IVPB ONE (10:00)
[2022-04-08] MEDS ORDERED: DEXTROSE 5% IVPB ONE (10:00)
[2022-04-08] MEDS ORDERED: DEXAMETHASONE IVPB ONE (10:00)
[2022-04-08] MEDS ORDERED: MAGNESIUM 1GM/D5W - 1 GM/100 ML IVPB IVPB ONE (10:00)
[2022-04-08 14:17] VITALS: RESP 18; TEMP 98.4
[2022-04-08 14:26] VITALS: BP 124/71; PULSE 89
[2022-04-08] MEDS ORDERED: PORTA CATH FLUSH 10 ML IVPUSH PRN (14:26)
== END 2022-04-08 12:15 | disposition home or self-care (01) ==
LOC: JONCCHEMO 09:24
PROVIDERS: ATTEND Internal Medicine Hematology & Oncology
PROC: 3E043GC Introduction of Other Therapeutic Substance into Central Vein, Percutaneous Approach (ICD-10-PCS; principal; 2022-04-08)
DX: C81.90 Hodgkin lymphoma, unspecified, unspecified site (principal); Z76.89 Persons encountering health services in other specified circumstances
CPT/HCPCS: 96365; 96375

== ENCOUNTER 2022-04-09 09:33 | Day surgery (SDC) | payer OTHER ==
[2022-04-09] MEDS ORDERED: PEGFILGRASTIM-CBQV (UDENYCA) 6 MG/0.6 ML SYRINGE SQ ONE (10:00)
[2022-04-09] MEDS ORDERED: FAMOTIDINE 40 MG TABLET PO ONE (10:00)
[2022-04-09] MEDS ORDERED: DEXAMETHASONE 4 MG TABLET (FP) PO ONE (10:00)
[2022-04-09] MEDS ORDERED: LORATADINE 10 MG TABLET PO ONE (10:00)
[2022-04-09 12:49] VITALS: BP 128/75; PULSE 69; RESP 20; TEMP 98.2
== END 2022-04-09 10:00 | disposition home or self-care (01) ==
LOC: JONCCHEMO 09:33
PROVIDERS: ATTEND Internal Medicine Hematology & Oncology
PROC: 3E013GC Introduction of Other Therapeutic Substance into Subcutaneous Tissue, Percutaneous Approach (ICD-10-PCS; principal; 2022-04-09)
DX: C81.90 Hodgkin lymphoma, unspecified, unspecified site (principal); Z76.89 Persons encountering health services in other specified circumstances
CPT/HCPCS: 96372; Q5111

== ENCOUNTER 2022-05-20 09:08 | Day surgery (SDC) | payer OTHER ==
[~2022-05-20 09:08] MED LIST changes: +ACETAMINOPHEN 325 MG TABLET (FP) PO ONE; +BLEOMYCIN SULFATE IVPB ONE; -D5-NS + 40 MEQ KCL - 20 MEQ/500 ML INFUS.BAG IV ONE; +DACARBAZINE IVPB ONE; -DEXAMETHASONE SODIUM PHOSPHATE 4 MG in SODIUM CHLORIDE 50 ML IVPB ONE; +DEXAMETHASONE SODIUM PHOSPHATE 8 MG in SODIUM CHLORIDE 50 ML IVPB ONE; +DEXTROSE 5% IVPB ONE; +DOXOrubicin HCL 50 MG/25 ML VIAL IV ONE; -FAMOTIDINE 40 MG TABLET PO ONE; +FOSAPREPITANT DIMEGLUMINE 150 MG in SODIUM CHLORIDE 145 ML IVPB ONE; -LORATADINE 10 MG TABLET PO ONE; -MAGNESIUM 1GM/D5W - 1 GM/100 ML IVPB IVPB ONE; +PALONOSETRON HCL 0.25 MG/5 ML VIAL IVPUSH ONE; +SODIUM CHLORIDE 250 ML IV ONE; +SODIUM CHLORIDE IVPB ONE; +VINBLASTINE SULFATE IVPB ONE; +WATER IVPB ONE; +diphenhydrAMINE HCL 12.5 MG/5 ML UNIT-DOSE CUPS PO ONE
[2022-05-20] MEDS ORDERED: SODIUM CHLORIDE 250 ML IV ONE (09:30)
[2022-05-20 09:34] LABS: HEMATOCRIT 40.8 % (35.4-49); HEMOGLOBIN 13.1 GM/dL (11.7-16.9); MCH 29.7 pg (25.7-33.7); MCHC 32.1 g/dl (32.0-35.9); MEAN CELL VOLUME 92.7 fl (80-96); MEAN PLT VOLUME 8.7 fl (7.5-11.1); PLATELET COUNT 287 10^3/uL (134-434); RDW 16.5 % (11.9-15.9); WHITE BLOOD COUNT 8.1 K/mm3 (4.0-10.0)
[2022-05-20 09:51] LABS: BLOOD UREA NITROGEN 17.2 mg/dL (7-18); CALCIUM 9.5 mg/dL (8.5-10.1)
[2022-05-20 09:52] LABS: ALBUMIN 3.6 g/dl (3.4-5.0); MAGNESIUM 2.2 mg/dL (1.8-2.4)
[2022-05-20 09:54] LABS: CREATININE 0.9 mg/dL (0.55-1.3)
[2022-05-20 09:55] LABS: BILIRUBIN,DIRECT 0.1 mg/dL (0.0-0.2)
[2022-05-20 09:56] LABS: BILIRUBIN,TOTAL 0.4 mg/dL (0.2-1); TOT PROT 6.7 g/dl (6.4-8.2)
[2022-05-20 09:59] LABS: URIC ACID 4.1 mg/dL (2.6-7.2)
[2022-05-20] MEDS ORDERED: DEXAMETHASONE SODIUM PHOSPHATE 8 MG in SODIUM CHLORIDE 50 ML IVPB ONE (10:00)
[2022-05-20] MEDS ORDERED: PALONOSETRON HCL 0.25 MG/5 ML VIAL IVPUSH ONE (10:00)
[2022-05-20] MEDS ORDERED: diphenhydrAMINE HCL 12.5 MG/5 ML UNIT-DOSE CUPS PO ONE (10:00)
[2022-05-20] MEDS ORDERED: FOSAPREPITANT DIMEGLUMINE 150 MG in SODIUM CHLORIDE 145 ML IVPB ONE (10:00)
[2022-05-20] MEDS ORDERED: ACETAMINOPHEN 325 MG TABLET (FP) PO ONE (10:00)
[2022-05-20 10:20] LABS: ANISOCYTOSIS 1+; MACROCYTOSIS 0; PLATELET ESTIMATE INCREASED
[2022-05-20] MEDS ORDERED: DOXOrubicin HCL 50 MG/25 ML VIAL IV ONE (10:30)
[2022-05-20] MEDS ORDERED: BLEOMYCIN SULFATE IVPB ONE (10:45)
[2022-05-20] MEDS ORDERED: SODIUM CHLORIDE IVPB ONE ×2 (10:45→11:00)
[2022-05-20] MEDS ORDERED: VINBLASTINE SULFATE IVPB ONE (11:00)
[2022-05-20] MEDS ORDERED: WATER IVPB ONE (11:30)
[2022-05-20] MEDS ORDERED: DACARBAZINE IVPB ONE (11:30)
[2022-05-20] MEDS ORDERED: DEXTROSE 5% IVPB ONE (11:30)
[2022-05-20 18:46] VITALS: TEMP 98.2
[2022-05-20] MEDS ORDERED: PORTA CATH FLUSH 10 ML IVPUSH PRN (18:46)
[2022-05-20 18:48] VITALS: BP 123/71; PULSE 78; RESP 18
== END 2022-05-20 14:55 | disposition home or self-care (01) ==
LOC: JONCCHEMO 09:08
PROVIDERS: ATTEND Internal Medicine Hematology & Oncology
DX: Z51.11 Encounter for antineoplastic chemotherapy (principal); C81.90 Hodgkin lymphoma, unspecified, unspecified site
CPT/HCPCS: 36415; 80048; 80076; 83615; 83735; 84550; 85025; 96375; 96411; 96413; J1453; J2469; J9040; J9130

== ENCOUNTER 2022-05-21 09:08 | Day surgery (SDC) | payer OTHER ==
[~2022-05-21 09:08] MED LIST changes: -ACETAMINOPHEN 325 MG TABLET (FP) PO ONE; -BLEOMYCIN SULFATE IVPB ONE; +D5-NS + 20 MEQ KCL - 10 MEQ/500 ML INFUS.BAG IV ONE; -DACARBAZINE IVPB ONE; +DEXAMETHASONE SODIUM PHOSPHATE 4 MG in DEXTROSE 5%-WATER - 50 ML IVPB ONE; -DEXAMETHASONE SODIUM PHOSPHATE 8 MG in SODIUM CHLORIDE 50 ML IVPB ONE; -DEXTROSE 5% IVPB ONE; -DOXOrubicin HCL 50 MG/25 ML VIAL IV ONE; +FAMOTIDINE 20 MG TABLET PO ONE; -FOSAPREPITANT DIMEGLUMINE 150 MG in SODIUM CHLORIDE 145 ML IVPB ONE; +LORATADINE 10 MG TABLET PO ONE; +MAGNESIUM 1GM/D5W - 1 GM/100 ML IVPB IVPB ONE; -PALONOSETRON HCL 0.25 MG/5 ML VIAL IVPUSH ONE; -SODIUM CHLORIDE 250 ML IV ONE; -SODIUM CHLORIDE IVPB ONE; -VINBLASTINE SULFATE IVPB ONE; -WATER IVPB ONE; -diphenhydrAMINE HCL 12.5 MG/5 ML UNIT-DOSE CUPS PO ONE
[2022-05-21] MEDS ORDERED: D5-NS + 20 MEQ KCL - 10 MEQ/500 ML INFUS.BAG IV ONE (10:00)
[2022-05-21] MEDS ORDERED: FAMOTIDINE 20 MG TABLET PO ONE (10:00)
[2022-05-21] MEDS ORDERED: LORATADINE 10 MG TABLET PO ONE (10:00)
[2022-05-21] MEDS ORDERED: DEXAMETHASONE SODIUM PHOSPHATE 4 MG in DEXTROSE 5%-WATER - 50 ML IVPB ONE (10:00)
[2022-05-21] MEDS ORDERED: MAGNESIUM 1GM/D5W - 1 GM/100 ML IVPB IVPB ONE (10:00)
[2022-05-21 13:11] LABS: PH,URINE 6.5 (5.0-8.0); URINE APPEARANCE CLEAR; URINE BILIRUBIN NEGATIVE (NEGATIVE); URINE COLOR YELLOW; URINE GLUCOSE (UA) NEGATIVE (NEGATIVE); URINE KETONE NEGATIVE (NEGATIVE); URINE LEUK ESTERASE NEGATIVE (NEGATIVE); URINE NITRITE NEGATIVE (NEGATIVE); URINE PROTEIN NEGATIVE (NEGATIVE); URINE UROBILINOGEN 0.2 mg/dL (0.2-1.0)
[2022-05-21 15:52] VITALS: RESP 18
[2022-05-21 16:16] VITALS: BP 129/74; PULSE 81
[2022-05-21] MEDS ORDERED: PORTA CATH FLUSH 10 ML IVPUSH PRN (16:16)
[2022-05-21 16:18] VITALS: TEMP 97.9
== END 2022-05-21 12:05 | disposition home or self-care (01) ==
LOC: JONCCHEMO 09:08
PROVIDERS: ATTEND Internal Medicine Hematology & Oncology
PROC: 3E043GC Introduction of Other Therapeutic Substance into Central Vein, Percutaneous Approach (ICD-10-PCS; principal; 2022-05-21)
DX: C81.90 Hodgkin lymphoma, unspecified, unspecified site (principal); Z76.89 Persons encountering health services in other specified circumstances
CPT/HCPCS: 81003; 87086; 96361; 96365; 96375

== ENCOUNTER 2022-05-22 09:21 | Day surgery (SDC) | payer OTHER ==
[2022-05-22] MEDS ORDERED: FAMOTIDINE 40 MG TABLET PO ONE (10:00)
[2022-05-22] MEDS ORDERED: LORATADINE 10 MG TABLET PO ONE (10:00)
[2022-05-22] MEDS ORDERED: PEGFILGRASTIM-CBQV (UDENYCA) 6 MG/0.6 ML SYRINGE SQ ONE (10:00)
[2022-05-22] MEDS ORDERED: DEXAMETHASONE 4 MG TABLET (FP) PO ONE (10:00)
[2022-05-22 10:13] VITALS: BP 126/67; PULSE 77; RESP 18; TEMP 97.9
== END 2022-05-22 10:17 | disposition home or self-care (01) ==
LOC: JONCCHEMO 09:21
PROVIDERS: ATTEND Internal Medicine Hematology & Oncology
PROC: 3E013GC Introduction of Other Therapeutic Substance into Subcutaneous Tissue, Percutaneous Approach (ICD-10-PCS; principal; 2022-05-22)
DX: C81.90 Hodgkin lymphoma, unspecified, unspecified site (principal); Z76.89 Persons encountering health services in other specified circumstances
CPT/HCPCS: 96372; Q5111

== ENCOUNTER 2022-06-03 09:47 | Day surgery (SDC) | payer OTHER ==
[~2022-06-03 09:47] MED LIST changes: -D5-NS + 20 MEQ KCL - 10 MEQ/500 ML INFUS.BAG IV ONE; -DEXAMETHASONE SODIUM PHOSPHATE 4 MG in DEXTROSE 5%-WATER - 50 ML IVPB ONE; +DEXAMETHASONE SODIUM PHOSPHATE 8 MG in SODIUM CHLORIDE 50 ML IVPB ONE; -FAMOTIDINE 20 MG TABLET PO ONE; +FOSAPREPITANT DIMEGLUMINE 150 MG in SODIUM CHLORIDE 145 ML IVPB ONE; -LORATADINE 10 MG TABLET PO ONE; -MAGNESIUM 1GM/D5W - 1 GM/100 ML IVPB IVPB ONE; +PALONOSETRON HCL 0.25 MG/5 ML VIAL IVPUSH ONE; +diphenhydrAMINE HCL 12.5 MG/5 ML UNIT-DOSE CUPS PO ONE
[2022-06-03] MEDS ORDERED: DOXOrubicin HCL 50 MG/25 ML VIAL IV ONE (10:00)
[2022-06-03] MEDS ORDERED: SODIUM CHLORIDE 250 ML IV ONE (10:00)
[2022-06-03] MEDS ORDERED: BLEOMYCIN SULFATE IVPB ONE (10:15)
[2022-06-03] MEDS ORDERED: SODIUM CHLORIDE IVPB ONE ×2 (10:15→10:45)
[2022-06-03 10:42] LABS: HEMATOCRIT 37.2 % (35.4-49); HEMOGLOBIN 12.1 GM/dL (11.7-16.9); MCH 29.6 pg (25.7-33.7); MCHC 32.5 g/dl (32.0-35.9); MEAN PLT VOLUME 8.2 fl (7.5-11.1); PLATELET COUNT 278 10^3/uL (134-434); RBC 4.08 M/mm3 (4.00-5.60); RDW 15.5 % (11.9-15.9); WHITE BLOOD COUNT 10.3 K/mm3 (4.0-10.0)
[2022-06-03] MEDS ORDERED: VINBLASTINE SULFATE IVPB ONE (10:45)
[2022-06-03 10:58] LABS: CALCIUM 9.3 mg/dL (8.5-10.1)
[2022-06-03 10:59] LABS: ALBUMIN 3.6 g/dl (3.4-5.0); BLOOD UREA NITROGEN 9.2 mg/dL (7-18)
[2022-06-03] MEDS ORDERED: WATER IVPB ONE (11:00)
[2022-06-03] MEDS ORDERED: DACARBAZINE IVPB ONE (11:00)
[2022-06-03] MEDS ORDERED: DEXTROSE 5% IVPB ONE (11:00)
[2022-06-03 11:01] LABS: BILIRUBIN,DIRECT 0.1 mg/dL (0.0-0.2); URIC ACID 3.7 mg/dL (2.6-7.2)
[2022-06-03 11:02] LABS: CREATININE 0.9 mg/dL (0.55-1.3)
[2022-06-03 11:03] LABS: BILIRUBIN,TOTAL 0.7 mg/dL (0.2-1); TOT PROT 6.6 g/dl (6.4-8.2)
[2022-06-03 11:21] LABS: ANISOCYTOSIS 1+; MACROCYTOSIS 0
[2022-06-03] MEDS ORDERED: ACETAMINOPHEN 325 MG TABLET (FP) PO ONE (12:00)
[2022-06-03 17:50] VITALS: BP 146/72; PULSE 97; RESP 18; TEMP 98.4
[2022-06-03] MEDS ORDERED: PORTA CATH FLUSH 10 ML IVPUSH PRN (17:50)
== END 2022-06-03 16:00 | disposition home or self-care (01) ==
LOC: JONCCHEMO 09:47
PROVIDERS: ATTEND Internal Medicine Hematology & Oncology
DX: Z51.11 Encounter for antineoplastic chemotherapy (principal); C81.90 Hodgkin lymphoma, unspecified, unspecified site
CPT/HCPCS: 36415; 80048; 80076; 83615; 83735; 84550; 85025; 96367; 96375; 96411; 96413; J1453; J2469; J9040; J9130

== ENCOUNTER 2022-06-04 09:30 | Day surgery (SDC) | payer OTHER ==
[~2022-06-04 09:30] MED LIST changes: +D5-NS + 20 MEQ KCL - 10 MEQ/500 ML INFUS.BAG IV ONE; +DEXAMETHASONE SODIUM PHOSPHATE 4 MG in DEXTROSE 5%-WATER - 50 ML IVPB ONE; -DEXAMETHASONE SODIUM PHOSPHATE 8 MG in SODIUM CHLORIDE 50 ML IVPB ONE; +FAMOTIDINE 20 MG TABLET PO ONE; -FOSAPREPITANT DIMEGLUMINE 150 MG in SODIUM CHLORIDE 145 ML IVPB ONE; +LORATADINE 10 MG TABLET PO ONE; -PALONOSETRON HCL 0.25 MG/5 ML VIAL IVPUSH ONE; -diphenhydrAMINE HCL 12.5 MG/5 ML UNIT-DOSE CUPS PO ONE
[2022-06-04] MEDS ORDERED: MAGNESIUM 1GM/D5W - 1 GM/100 ML IVPB IVPB ONE (10:00)
[2022-06-04] MEDS ORDERED: DEXAMETHASONE SODIUM PHOSPHATE 4 MG in DEXTROSE 5%-WATER - 50 ML IVPB ONE (11:00)
[2022-06-04] MEDS ORDERED: ONDANSETRON 4 MG/2 ML VIAL IVPB ONE (11:36)
[2022-06-04] MEDS ORDERED: ONDANSETRON INJECTION 8 MG in SODIUM CHLORIDE 50 ML IVPB ONE (12:15)
[2022-06-04 15:03] VITALS: BP 130/87; PULSE 119; RESP 20; TEMP 98.3
[2022-06-04] MEDS ORDERED: PORTA CATH FLUSH 10 ML IVPUSH PRN (15:03)
== END 2022-06-04 13:35 | disposition home or self-care (01) ==
LOC: JONCCHEMO 09:30
PROVIDERS: ATTEND Internal Medicine Hematology & Oncology
PROC: 3E043GC Introduction of Other Therapeutic Substance into Central Vein, Percutaneous Approach (ICD-10-PCS; principal; 2022-06-04)
DX: C81.90 Hodgkin lymphoma, unspecified, unspecified site (principal); Z76.89 Persons encountering health services in other specified circumstances
CPT/HCPCS: 96365; 96367; J2405

== ENCOUNTER 2022-06-05 09:20 | Day surgery (SDC) | payer OTHER ==
[~2022-06-05 09:20] MED LIST changes: -D5-NS + 20 MEQ KCL - 10 MEQ/500 ML INFUS.BAG IV ONE; -DEXAMETHASONE SODIUM PHOSPHATE 4 MG in DEXTROSE 5%-WATER - 50 ML IVPB ONE; +DEXAMETHASONE SODIUM PHOSPHATE 4 MG in SODIUM CHLORIDE 50 ML IVPB ONE; -FAMOTIDINE 20 MG TABLET PO ONE; -LORATADINE 10 MG TABLET PO ONE
[2022-06-05] MEDS ORDERED: DEXAMETHASONE 4 MG TABLET (FP) PO ONE ×2 (09:30→10:00)
[2022-06-05] MEDS ORDERED: FAMOTIDINE 40 MG TABLET PO ONE (10:00)
[2022-06-05] MEDS ORDERED: PEGFILGRASTIM-CBQV (UDENYCA) 6 MG/0.6 ML SYRINGE SQ ONE (10:00)
[2022-06-05] MEDS ORDERED: LORATADINE 10 MG TABLET PO ONE (10:00)
[2022-06-05 14:39] VITALS: BP 142/81; PULSE 76; RESP 20; TEMP 98.2
== END 2022-06-05 10:00 | disposition home or self-care (01) ==
LOC: JONCCHEMO 09:20
PROVIDERS: ATTEND Internal Medicine Hematology & Oncology
PROC: 3E013GC Introduction of Other Therapeutic Substance into Subcutaneous Tissue, Percutaneous Approach (ICD-10-PCS; principal; 2022-06-05)
DX: C81.90 Hodgkin lymphoma, unspecified, unspecified site (principal); Z76.89 Persons encountering health services in other specified circumstances
CPT/HCPCS: 96372; Q5111

== ENCOUNTER 2022-06-17 08:38 | Day surgery (SDC) | payer OTHER ==
[2022-06-17] MEDS ORDERED: SODIUM CHLORIDE 250 ML IV ONE (09:00)
[2022-06-17 09:22] LABS: HEMATOCRIT 36.7 % (35.4-49); MCH 29.4 pg (25.7-33.7); MCHC 32.5 g/dl (32.0-35.9); MEAN CELL VOLUME 90.4 fl (80-96); PLATELET COUNT 427 10^3/uL (134-434); RBC 4.06 M/mm3 (4.00-5.60); RDW 15.8 % (11.9-15.9); WHITE BLOOD COUNT 18.8 K/mm3 (4.0-10.0)
[2022-06-17] MEDS ORDERED: ACETAMINOPHEN 325 MG TABLET (FP) PO ONE (09:30)
[2022-06-17] MEDS ORDERED: FOSAPREPITANT DIMEGLUMINE 150 MG in SODIUM CHLORIDE 145 ML IVPB ONE (09:30)
[2022-06-17] MEDS ORDERED: PALONOSETRON HCL 0.25 MG/5 ML VIAL IVPUSH ONE (09:30)
[2022-06-17] MEDS ORDERED: diphenhydrAMINE HCL 12.5 MG/5 ML UNIT-DOSE CUPS PO ONE (09:30)
[2022-06-17] MEDS ORDERED: DEXAMETHASONE SODIUM PHOSPHATE 8 MG in SODIUM CHLORIDE 50 ML IVPB ONE (09:30)
[2022-06-17 09:46] LABS: ALBUMIN 3.5 g/dl (3.4-5.0)
[2022-06-17 09:48] LABS: BLOOD UREA NITROGEN 12.2 mg/dL (7-18); CREATININE 0.8 mg/dL (0.55-1.3); URIC ACID 4.4 mg/dL (2.6-7.2)
[2022-06-17 09:49] LABS: BILIRUBIN,DIRECT 0.1 mg/dL (0.0-0.2)
[2022-06-17 09:50] LABS: TOT PROT 6.4 g/dl (6.4-8.2)
[2022-06-17 09:51] LABS: BILIRUBIN,TOTAL 0.3 mg/dL (0.2-1)
[2022-06-17] MEDS ORDERED: DOXOrubicin HCL 50 MG/25 ML VIAL IV ONE (10:00)
[2022-06-17 10:12] LABS: ANISOCYTOSIS 0; HELMET CELLS 0; HOWELL-JOLLY BODIES 0; MACROCYTOSIS 0; OVALOCYTE 0; ROULEAU 0; SICKELED CELLS 0; TARGET CELLS 0; TEAR DROP CELLS 0; TOXIC GRANULATION 0
[2022-06-17] MEDS ORDERED: SODIUM CHLORIDE IVPB ONE ×2 (10:15→10:30)
[2022-06-17] MEDS ORDERED: BLEOMYCIN SULFATE IVPB ONE (10:15)
[2022-06-17] MEDS ORDERED: VINBLASTINE SULFATE IVPB ONE (10:30)
[2022-06-17] MEDS ORDERED: DACARBAZINE IVPB ONE (10:35)
[2022-06-17] MEDS ORDERED: DEXTROSE 5% IVPB ONE (10:35)
[2022-06-17] MEDS ORDERED: WATER IVPB ONE (10:35)
[2022-06-17 15:23] VITALS: RESP 18; TEMP 98.6
[2022-06-17 15:49] VITALS: BP 129/71; PULSE 91
[2022-06-17] MEDS ORDERED: PORTA CATH FLUSH 10 ML IVPUSH PRN (15:49)
[2022-06-19 15:07] LABS: BETA-2-MICROGLOBULIN 1.7 mg/L (0.6-2.4)
== END 2022-06-17 13:35 | disposition home or self-care (01) ==
LOC: JONCCHEMO 08:38
PROVIDERS: ATTEND Internal Medicine Hematology & Oncology
DX: Z51.11 Encounter for antineoplastic chemotherapy (principal); C81.90 Hodgkin lymphoma, unspecified, unspecified site
CPT/HCPCS: 36415; 80048; 80076; 82232; 82784; 83615; 83735; 84550; 85025; 96367; 96375; 96411; 96413; J1453; J2469; J9040; J9130

== ENCOUNTER 2022-06-18 09:27 | Day surgery (SDC) | payer OTHER ==
[~2022-06-18 09:27] MED LIST changes: +D5-NS + 20 MEQ KCL - 10 MEQ/500 ML INFUS.BAG IV ONE; -DEXAMETHASONE SODIUM PHOSPHATE 4 MG in SODIUM CHLORIDE 50 ML IVPB ONE; +MAGNESIUM 1GM/D5W - 1 GM/100 ML IVPB IVPB ONE
[2022-06-18] MEDS ORDERED: LORATADINE 10 MG TABLET PO ONE (09:30)
[2022-06-18] MEDS ORDERED: DEXAMETHASONE SODIUM PHOSPHATE 4 MG in DEXTROSE 5%-WATER - 50 ML IVPB ONE (09:30)
[2022-06-18] MEDS ORDERED: DEXAMETHASONE SODIUM PHOSPHATE 4 MG in SODIUM CHLORIDE 50 ML IVPB ONE (09:30)
[2022-06-18] MEDS ORDERED: FAMOTIDINE 20 MG TABLET PO ONE (10:00)
[2022-06-18 15:31] VITALS: RESP 20
[2022-06-18 15:44] VITALS: BP 122/68; PULSE 80; TEMP 97
[2022-06-18] MEDS ORDERED: PORTA CATH FLUSH 10 ML IVPUSH PRN (15:44)
== END 2022-06-18 12:00 | disposition home or self-care (01) ==
LOC: JONCCHEMO 09:27
PROVIDERS: ATTEND Internal Medicine Hematology & Oncology
PROC: 3E043GC Introduction of Other Therapeutic Substance into Central Vein, Percutaneous Approach (ICD-10-PCS; principal; 2022-06-18)
DX: C81.90 Hodgkin lymphoma, unspecified, unspecified site (principal); Z76.89 Persons encountering health services in other specified circumstances
CPT/HCPCS: 96365; 96375

== ENCOUNTER 2022-06-19 09:08 | Day surgery (SDC) | payer OTHER ==
[2022-06-19] MEDS ORDERED: LORATADINE 10 MG TABLET PO ONE (10:00)
[2022-06-19] MEDS ORDERED: DEXAMETHASONE 4 MG TABLET (FP) PO ONE (10:00)
[2022-06-19] MEDS ORDERED: FAMOTIDINE 40 MG TABLET PO ONE (10:00)
[2022-06-19] MEDS ORDERED: PEGFILGRASTIM-CBQV (UDENYCA) 6 MG/0.6 ML SYRINGE SQ ONE (10:00)
[2022-06-19 13:23] VITALS: BP 127/79; PULSE 89; RESP 20; TEMP 98
== END 2022-06-19 09:30 | disposition home or self-care (01) ==
LOC: JONCCHEMO 09:08
PROVIDERS: ATTEND Internal Medicine Hematology & Oncology
PROC: 3E013GC Introduction of Other Therapeutic Substance into Subcutaneous Tissue, Percutaneous Approach (ICD-10-PCS; principal; 2022-06-19)
DX: C81.90 Hodgkin lymphoma, unspecified, unspecified site (principal); Z76.89 Persons encountering health services in other specified circumstances
CPT/HCPCS: 96372; Q5111

== ENCOUNTER 2022-09-18 04:15 | Day surgery (SDC) | payer OTHER ==
[2022-09-17 11:54] VITALS: BMI 36.8
[2022-09-18 11:05] VITALS: BP 120/73; PULSE 63; RESP 18; TEMP 98
== END 2022-09-18 10:55 | disposition home or self-care (01) ==
LOC: JASU-ENDO 04:15
PROVIDERS: ATTEND Internal Medicine Gastroenterology
PROC: 0DB68ZX Excision of Stomach, Via Natural or Artificial Opening Endoscopic, Diagnostic (ICD-10-PCS; 2022-09-18)
PROC: 0DB78ZX Excision of Stomach, Pylorus, Via Natural or Artificial Opening Endoscopic, Diagnostic (ICD-10-PCS; 2022-09-18)
PROC: 0DBN8ZX Excision of Sigmoid Colon, Via Natural or Artificial Opening Endoscopic, Diagnostic (ICD-10-PCS; 2022-09-18)
PROC: 0DJD8ZZ Inspection of Lower Intestinal Tract, Via Natural or Artificial Opening Endoscopic (ICD-10-PCS; principal; 2022-09-18 09:30)
DX: K51.311 Ulcerative (chronic) rectosigmoiditis with rectal bleeding (principal); K29.50 Unspecified chronic gastritis without bleeding; K64.8 Other hemorrhoids
CPT/HCPCS: 88305-TC; 88342-TC

== ENCOUNTER 2022-10-08 08:57 | Emergency (ER) | payer OTHER ==
[2022-10-08 09:10] VITALS: BP 144/78; PULSE 95; RESP 16; TEMP 97.6; BMI 37.4
[2022-10-08 10:38] LABS: HEMATOCRIT 39.4 % (35.4-49); HEMOGLOBIN 13.3 GM/dL (11.7-16.9); MCH 29.5 pg (25.7-33.7); MCHC 33.8 g/dl (32.0-35.9); MEAN CELL VOLUME 87.2 fl (80-96); MEAN PLT VOLUME 8.4 fl (7.5-11.1); PLATELET COUNT 235 10^3/uL (134-434); RBC 4.52 M/mm3 (4.00-5.60); RDW 15.8 % (11.9-15.9); WHITE BLOOD COUNT 11.1 K/mm3 (4.0-10.0)
[2022-10-08 10:46] LABS: INR 1.08 (0.83-1.09); PROTHROMBIN TIME (PATIENT) 12.5 SEC (9.7-13.0)
[2022-10-08 10:49] LABS: ACTIVATED PTT 25.2 SECONDS (25.2-36.5)
[2022-10-08 11:07] LABS: POTASSIUM 3.8 mmol/L (3.5-5.1)
[2022-10-08 11:08] LABS: CALCIUM 9.6 mg/dL (8.5-10.1)
[2022-10-08 11:09] LABS: ALBUMIN 3.6 g/dl (3.4-5.0); MAGNESIUM 2.4 mg/dL (1.8-2.4)
[2022-10-08 11:12] LABS: CREATININE 0.7 mg/dL (0.55-1.3)
[2022-10-08 11:13] LABS: TOT PROT 7.2 g/dl (6.4-8.2)
[2022-10-08 11:14] LABS: BILIRUBIN,TOTAL 0.4 mg/dL (0.2-1)
[2022-10-08 11:15] LABS: ANISOCYTOSIS 0; HELMET CELLS 0; HOWELL-JOLLY BODIES 0; MACROCYTOSIS 0; OVALOCYTE 0; ROULEAU 0; SICKELED CELLS 0; TARGET CELLS 0; TEAR DROP CELLS 0; TOXIC GRANULATION 0
[2022-10-08] MEDS ORDERED: APIXABAN 5 MG TABLET PO ONE (12:00)
[2022-10-08] MEDS ORDERED: APIXABAN 5 MG TABLET ONE (12:22)
== END 2022-10-08 12:25 | disposition home or self-care (01) ==
LOC: JER 08:57 → JERFT 08:57 → JER 12:25
DX: R25.2 Cramp and spasm (principal); I82.492 Acute embolism and thrombosis of other specified deep vein of left lower extremity
CPT/HCPCS: 36415; 80053; 82550; 83735; 85025; 85610; 85730; 93971-TC; 99284-25